=== PATIENT | male | born 1940 | race Hispanic/Latino ===

== ENCOUNTER → 2018-09-01 | Day surgery (SDC) | payer MEDICARE ==
[2018-08-29 15:27] LABS: BASOPHILS % 0.3 % (0.0-1.0); EOSINOPHILS # (AUTO) 0.3 (0.0-0.4); HEMATOCRIT 31.1 % (38.2-49.6); HEMOGLOBIN 10.3 g/dL (14.0-18.0); LYMPHOCYTES # (AUTO) 1.5 (1.0-3.2); MEAN CORPUSCULAR HEMOGLOBIN 32.3 pg (28-32); MEAN CORPUSCULAR HGB CONC 33.1 g/dL (31-35); MEAN CORPUSCULAR VOLUME 97.5 fL (81-99); MONOCYTES # (AUTO) 0.5 (0.2-0.8); MONOCYTES % 7.1 % (4.4-11.3); NEUTROPHILS # (AUTO) 4.3 (2.1-6.9); NEUTROPHILS % 64.4 % (38.7-80.0); PLATELET COUNT 161 x10e3/uL (140-360); RED BLOOD COUNT 3.19 x10e6/uL (4.3-5.7); RED CELL DISTRIBUTION WIDTH 11.8 % (11.7-14.4)
[2018-08-29 15:44] LABS: ANION GAP 13.9 mmol/L (8-16); CALCIUM 9.9 mg/dL (8.4-10.2); CREATININE, SERUM 1.31 mg/dL (0.72-1.25); POTASSIUM 4.9 mmol/L (3.5-5.1)
[2018-08-29 15:46] LABS: INR 0.89; PROTHROMBIN TIME 12.9 seconds (11.9-14.5)
[2018-08-29 15:47] LABS: PARTIAL THROMBOPLASTIN TIME 29.1 seconds (23.8-35.5)
[~2018-09-01] MED LIST: AMBIEN10 MG PO; AMLODIPINE BESY10 MG PO; ASPIR 8181 MG PO; ATORVASTATIN CA20 MG PO; BUPIVACAINE 0.5%/EPI 30 ML SDV INJ ONE; BUPIVACAINE HCL 0.5% INJ 30 ML VIAL INJ ONE; CALCIUM CARBON500 MG PO; COMBIVENT RESPIM4 GM IH; DICYCLOMINE HCL10 MG PO; DOCUSATE SODIU100 MG PO; FENTANYL CITRATE/PF 100MCG/2 ML INJ ONE; FENTANYL1 EAC1 TOP; FUROSEMIDE40 MG PO; GENERLAC10 GM/15 M PO; HALOPERIDOL1 MG PO; HUMALOG100 UNIT/1 SC; HYDROXYZINE HCL25 MG PO; INSULIN REGULAR, HUMAN 100 UNIT/1 ML 3ML VIAL ONE; IRON PO; ISOSORBIDE MONO20 MG PO; LIDOCAINE HCL 1% LOCAL INJ 20 ML VIAL ONE; LIDOCAINE HCL 2% LOCAL INJ 5 ML SDV VIAL INJ ONE; LISINOPRIL10 MG PO; LORAZEPAM1 MG PO; METOPROLOL TART50 MG PO; MIDAZOLAM HCL 2 MG/2 ML VIAL ONE; MS CONTIN30 MG PO; MUCINEX DM ER1 EACH PO; MULTI-VITAMIN1 EACH PO; MUPIROCIN 2% OINT 22 GM TUBE ONE; NITROGLYCERIN0.4 MG SL; OMEPRAZOLE40 MG PO; POTASSIUM CHLO20 ME1 PO; PROPOFOL IV EMULSION 10 MG/ML 20 ML VIAL ONE; RANEXA500 MG PO; SENNOSIDES8.6 MG PO; TOUJEO SQ; TYLENOL WITH C1 EACH PO; VANCOMYCIN HCL1 GM IV; VITAMIN B-121000 MCG SL; ZOFRAN4 MG PO
--- OUTSIDE RECORDS SUMMARY | 2018-09-01 06:56 | XMS REPORT | Clinical Summary ---
Author Author CONRADO [facility] Organization [facility] Address Unknown Phone Unavailable Care Team Providers Care Ediphone Operator Name Role Phone PCP Unavailable Allergies No Known Allergies Medications End Date Status Medication Sig Dispensed Refills Start Date Active atorvastatin (LIPITOR) 40 TK 1 T PO HS 0 MG tablet 8 Active DOK 100 mg capsule TK 1 C PO BID 0 8 Active fentaNYL (DURAGESIC) 100 UNW AND HELENA 1 0 mcg/hr patch PA Q 48 H 8 Active finasteride (PROSCAR) 5 TK 1 T PO QD 2 mg tablet 8 Active furosemide (LASIX) 40 MG TK 1 T PO QD 1 tablet 8 Active HYDROcodone-acetaminophen TK 1 T PO QID 0 (NORCO 10-325) 10-325 mg PRN 8 per tablet Active COMBIVENT RESPIMAT 20-100 INHALE 1 PUFF 3 mcg/actuation Mist QID 8 inhaler Active isosorbide mononitrate TK 1 T PO 3 (IMDUR) 120 mg 24 hr ONCE D 8 tablet Active lisinopril TK 1 T PO D 0 (PRINIVIL,ZESTRIL) 5 MG 8 tablet Active LORazepam (ATIVAN) 2 MG TK 1 T PO BID 3 tablet PRN 8 Active QUEtiapine (SEROQUEL) 50 TK 1 T PO TID 0 MG tablet PRF AGITATION 8 Active QUEtiapine (SEROQUEL) 100 TK 1 T PO HS 0 MG tablet 8 Active ANORO ELLIPTA 62.5-25 INHALE 1 PUFF 3 mcg/actuation DsDv BY MOUTH 8 DAILY. Active haloperidol (HALDOL) 2 MG Take 2 mg by 0 tabletIndications: mouth 2 (two) Delirium times daily. Active sulfamethoxazole-trimetho Take 1 tablet 0 prim (BACTRIM DS) 800-160 by mouth 2 mg per tablet (two) times daily. 05/25/2019 Active aspirin 81 MG chewable Take 1 tablet 30 tablet 3 tablet (81 mg total) 8 by mouth daily. 05/24/2018 Discontinued aspirin 81 MG chewable Take 1 tablet 30 tablet 3 tablet (81 mg total) 8 by mouth daily. 05/24/2018 Discontinued cefpodoxime (VANTIN) 100 Take 1 tablet 4 tablet 0 MG tablet (100 mg 8 total) by mouth 2 (two) times daily for 2 days. Active Problems Problem Noted Date DM (diabetes mellitus) 05/23/2018 Dementia 05/23/2018 Hyperlipidemia 05/23/2018 UTI (urinary tract infection) 05/23/2018 Hypoglycemia 05/23/2018 Hyponatremia 05/23/2018 TIA (transient ischemic attack) 05/23/2018 Smoker 05/23/2018 Acute ischemic stroke 05/22/2018 Received tissue plasminogen activator (t-PA) less than 24 hours prior to 05/22/2018 arrival Essential hypertension 05/22/2018 Resolved Problems Problem Noted Date Resolved Date Disorientation 05/23/2018 05/24/2018 Altered mental state 05/23/2018 05/24/2018 Anemia 05/23/2018 05/24/2018 Aphasia 05/21/2018 05/24/2018 Encounters Care Team Description Date Type Specialty Cem Mabry MD Damani, Naren Watson MD Aphasia (Primary Dx); Dysarthria; Cerebrovascular accident (CVA) due to thrombosis of precerebral artery (HCC); Acute ischemic stroke (HCC); Essential hypertension; Received tissue plasminogen activator (t-PA) less than 24 hours prior to arrival 05/21/2018 Hospital Intensive Care - Encounter 05/24/2018 05/21/2018 Orders Only General Internal Medicine after 08/31/2017 Social History Date Tobacco Use Types Packs/Day Years Used Never Smoker Smokeless Tobacco: Never Used Alcohol Use Drinks/Week oz/Week Comments No Sex Assigned at Date Recorded Not on file Industry Job Start Date Occupation Not on file Not on file Not on file Travel End Travel History Travel Start No recent travel history available. Last Filed Vital Signs Time Taken Vital Sign Reading 05/24/2018 11:00 AM CDT Blood Pressure 126/67 05/24/2018 11:00 AM CDT Pulse 79 05/24/2018 8:00 AM CDT Temperature 36.7 C (98.1 F) 05/24/2018 11:00 AM CDT Respiratory Rate 20 05/24/2018 11:00 AM CDT Oxygen Saturation 100% - Inhaled Oxygen - Concentration 05/21/2018 10:15 PM CDT Weight 50.5 kg (111 lb 5.3 oz) 05/21/2018 10:15 PM CDT Height 170.2 cm (5' 7") 05/21/2018 10:15 PM CDT Body Mass Index 17.44 Plan of Treatment Not on file Procedures Comments Procedure Name Priority Date/Time Associated Diagnosis RHYTHM STRIP - SCAN 05/25/2018 9:40 AM CDT CBC W/PLT COUNT & AUTO Routine 05/24/2018 DIFFERENTIAL 10:10 AM CDT CBC W/PLT COUNT & AUTO Routine 05/24/2018 DIFFERENTIAL 10:10 AM CDT BASIC METABOLIC PANEL (7) Routine 05/24/2018 10:10 AM CDT ED ECG INTERPRETATION Routine 05/23/2018 5:55 PM CDT ECHOCARDIOGRAM REPORT - 05/23/2018 SCAN 1:30 PM CDT 2D ECHO MODE W/O DOPPLER Routine 05/23/2018 9:[address] BRAIN WITHOUT IV Routine 05/23/2018 CONTRAST PORTABLE 4:50 AM CDT APTT Routine 05/23/2018 3:48 AM CDT PROTHROMBIN TIME/INR Routine 05/23/2018 3:48 AM CDT CBC W/PLT COUNT & AUTO Routine 05/23/2018 DIFFERENTIAL 3:42 AM CDT CBC W/PLT COUNT & AUTO Routine 05/23/2018 DIFFERENTIAL 3:42 AM CDT BASIC METABOLIC PANEL (7) Routine 05/23/2018 3:42 AM CDT CAROTID DOPPLER BILATERAL Routine 05/22/2018 1:00 PM CDT URINE CULTURE Routine 05/22/2018 7:43 AM CDT POCT-GLUCOSE METER Routine 05/22/2018 7:39 AM CDT HEMOGLOBIN A1C Routine 05/22/2018 7:32 AM CDT HEPATIC FUNCTION PANEL Routine 05/22/2018 7:32 AM CDT VITAMIN B12 AND FOLATE Routine 05/22/2018 7:32 AM CDT TSH/FREE T4 IF INDICATED Routine 05/22/2018 7:32 AM CDT POCT-GLUCOSE METER Routine 05/22/2018 6:20 AM CDT URINALYSIS W/ MICROSCOPIC Routine 05/22/2018 4:35 AM CDT APTT Routine 05/22/2018 4:35 AM CDT PROTHROMBIN TIME/INR Routine 05/22/2018 4:35 AM CDT COMPREHENSIVE METABOLIC Routine 05/22/2018 PANEL 4:35 AM CDT TROPONIN I Routine 05/22/2018 4:35 AM CDT LIPID PANEL Routine 05/22/2018 4:35 AM CDT CBC W/PLT COUNT & AUTO Routine 05/22/2018 DIFFERENTIAL 1:11 AM CDT CBC W/PLT COUNT & AUTO Routine 05/22/2018 DIFFERENTIAL 1:11 AM CDT ECG 12-LEAD Routine 05/21/2018 10:48 PM CDT Procedure Note - Interface, External Ris In - 05/21/2018 10:59 PM CDT Ventricula r Rate 70 BPM Atrial Rate 70 BPM P-R Interval 148 ms QRS Duration 88 ms Q-T Interval 422 ms QTC Calculatio n(Bazett) 455 ms P Concordia 78 degrees R Concordia 3 degrees T Concordia 67 degrees Normal sinus rhythm Possible Left atrial enlargemen t Low voltage QRS Inferior infarct (cited on or before 8) Abnormal ECG When compared with ECG of 8 22:46, No significan t change was found ECG 12-LEAD Routine 05/21/2018 10:46 PM CDT Procedure Note - Interface, External Ris In - 05/21/2018 10:58 PM CDT Ventricula r Rate 71 BPM Atrial Rate 71 BPM P-R Interval 152 ms QRS Duration 86 ms Q-T Interval 454 ms QTC Calculatio n(Bazett) 493 ms P Concordia 77 degrees R Concordia -15 degrees T Concordia 79 degrees Normal sinus rhythm Possible Left atrial enlargemen t Low voltage QRS Possible Inferior infarct , age undetermin ed Abnormal ECG No previous ECGs available ECG 12-LEAD Routine 05/21/2018 10:46 PM CDT XR CHEST 1 VIEW STAT 05/21/2018 PORTABLE/BEDSIDE 9:08 PM CDT URINALYSIS MICROSCOPIC Routine 05/21/2018 8:58 PM CDT URINALYSIS WITH STAT 05/21/2018 MICROSCOPIC IF INDICATED 8:58 PM CDT CBC W/PLT COUNT & AUTO STAT 05/21/2018 DIFFERENTIAL 8:52 PM CDT MAGNESIUM STAT 05/21/2018 8:52 PM CDT PT/APTT STAT 05/21/2018 8:52 PM CDT TROPONIN I STAT 05/21/2018 8:52 PM CDT COMPREHENSIVE METABOLIC STAT 05/21/2018 PANEL 8:52 PM CDT CBC W/PLT COUNT & AUTO STAT 05/21/2018 DIFFERENTIAL 8:52 PM CDT ECG 12-LEAD Routine 05/21/2018 8:34 PM CDT POCT-GLUCOSE METER Routine 05/21/2018 8:[address] BRAIN/STROKE TEST STAT 05/21/2018 DESIGN 8:29 PM CDT after 08/31/2017 Results * RHYTHM STRIP - SCAN (05/25/2018 9:40 AM CDT) Narrative Performed At * CBC with platelet count + automated diff (05/24/2018 10:10 AM CDT) Only the most recent of 4 results within the time period is included. WBC 4.9 3.5 - 10.5 K/L [facility] RBC 3.78 (L) 4.63 - 6.08 M/L [facility] Hemoglobin 11.7 (L) 13.7 - 17.5 GM/DL [facility] Hematocrit 34.0 (L) 40.1 - 51.0 % [facility] MCV 89.9 79.0 - 92.2 fL [facility] MCH 31.0 25.7 - 32.2 pg [facility] MCHC 34.4 32.3 - 36.5 GM/DL [facility] RDW 12.0 11.6 - 14.4 % [facility] Platelets 138 (L) 150 - 450 K/CU MM [facility] MPV 8.9 (L) 9.4 - 12.4 fL [facility] nRBC 0 0 - 0 /100 WBC [facility] % Neutros 68 % [facility] % Lymphs 19 % [facility] % Monos 9 % [facility] % Eos 3 % [facility] % Baso 0 % [facility] # Neutros 3.34 1.78 - 5.38 K/L [facility] # Lymphs 0.93 (L) 1.32 - 3.57 K/L [facility] # Monos 0.44 0.30 - 0.82 K/L [facility] # Eos 0.13 0.04 - 0.54 K/L [facility] # Baso 0.02 0.01 - 0.08 K/L [facility] Immature 0 0 - 1 % [facility] Granulocytes-[facility] Specimen Blood - Arm, Left Performing Organization Address [facility], [place] Phone Number [facility] [address] [place] [address] [facility] * Basic Metabolic Panel (05/24/2018 10:10 AM CDT) Only the most recent of 2 results within the time period is included. Sodium 131 (L) 136 - 145 meq/L [facility] Potassium 4.5 3.5 - 5.1 meq/L [facility] Chloride 100 98 - 107 meq/L [facility] CO2 24 22 - 29 meq/L [facility] BUN 13 7 - 21 mg/dL [facility] Creatinine 0.98 0.57 - 1.25 mg/dL [facility] Glucose 316 (H) 70 - 105 mg/dL [facility] Calcium 9.4 8.4 - 10.2 mg/dL [facility] EGFR 74Comment: ESTIMATED GFR IS mL/min/1.73 sq m [facility] NOT ACCURATE CREATININE [facility] CLEARANCE IN PREDICTING GLOMERULAR FILTRATION RATE. ESTIMATED GFR IS NOT APPLICABLE FOR DIALYSIS PATIENTS. Specimen Blood - Arm, Left Performing Organization Address City/State/Zipcode Phone Number [facility] [address] [place] [address] [facility] * ED ECG Interpretation (05/23/2018 5:55 PM CDT) Narrative Performed At Cem Mabry MD 05/23/20185:55 PM ECG/EKG Interpretation Date/Time: 05/21/2018 8:34 PM Performed by: CEM MABRY Authorized by: CEM MABRY The ECG was interpreted by ED physician. The ECG is interpreted as sinus rhythm. Rate is normal rate. Heart rate is 67 BPM. Conduction: conduction normal. ST segments normal. T waves normal. Concordia is normal. Other findings: no other findings. Clinical Impression: non-specific ECGECG reviewed and does not meet STEMI criteria. Patient tolerance: Patient tolerated the procedure well with no immediate complications * ECHOCARDIOGRAM REPORT - SCAN (05/23/2018 1:30 PM CDT) Narrative Performed At * 2D Echo W/O Doppler(No Doppler) (05/23/2018 9:17 AM CDT) Ejection Fraction [facility] Narrative Performed At Transthoracic Echocardiography Report (TTE) [facility] Demographics [facility] Patient Name Karlos NOEL of Study05/23/2018 ARAUSA [id number] Male Visit Number [id number] [id number] Room [id number] Number Date of Birth2[facility]erring[facility] Physician Age78 year(s)Suzanna Cardenas, [facility] [[email or web address]] Interpreting Starla Mendoza MD Physician Procedure Type of Study TTE procedure:ECHO2D MODE W/O DOPPLER (Routine) Indications:Suspected cardiac source of emboli. Clinical History HGB 11.1 HCT 32.9 % HLD, HTN, Stroke Contrast Medium: Bubble Study. Height: 67 inches Weight: 50.35 kg (111 lbs) BSA: 1.57 m^2 BMI: 17.38 kg/m^2 HR: 79 bpm BP: 140/59 mmHg Summary Global LV systolic function normal . Normal LV wall thickness. Grade 1 diastolic dysfunction (impaired relaxation and low-normal LA pressure). LA size is normal (16-34 ml/m2) . Mild AoV cusp calcification. IV saline contrast injection was negative for a PFO (patent foramen ovale) at rest and post Valsalva . Unable to estimate peak systolic PA pressure; inadequate TR velocity signal. The estimated RA pressure by IVC dynamics 11-15mmHg . Previous Study No prior studies available for comparison. Signature Findings Technical Quality: Technically adequate exam. Left Ventricle Global LV systolic function normal . Normal LV wall thickness. Estimated LVEF by qualitative assessment is normal (55-60%) . Grade 1 diastolic dysfunction (impaired relaxation and low-normal LA pressure). The left ventricle is chamber size (by PSLAX dimension) is normal (male - LVIDd 4.2-5.8cm) . Left AtriumLA size is normal (16-34 ml/m2) . Right VentricleThe right ventricular chamber size and systolic function are within normal limits. Right Atrium RA size is normal. Atrial SeptumIV saline contrast injection was negative for a PFO (patent foramen ovale) at rest and post Valsalva . Aortic Valve Mild AoV cusp thickening. Mild AoV cusp calcification. AoV calcification primarily involves the non- coronary cusp(s). No evidence of aortic stenosis. Mitral Valve Mild MV leaflet thickening. Mild mitral regurgitation. Tricuspid ValveTV structure is normal. Unable to estimate peak systolic PA pressure; inadequate TR velocity signal. AortaAortic root size (SInus of Valsalva diameter) is normal . PericardiumNo pericardial effusion is visualized. IVC/SVC/PA/PV/PleuralThe estimated RA pressure by IVC dynamics 11-15mmHg . Chambers/Structures Left Atrium LA Dimension: 3.06 cm LA Volume: 29.37 ml LA Vol. Index: 19 ml/m^2 Left Ventricle LVIDd: 4.54 cm LVIDs: 3.11 cm LV Septum Diastolic: 0.75 cm LV PW Diastolic: 0.83 cm LV FS: 31.5 % LVOT Diameter: 2.01 cm Doppler/Quantitative Measurements Mitral Valve MV Peak E-Wave: 0.63 m/s MV Peak A-Wave: 0.9 m/s E/A Ratio: 0.69 Peak Gradient: 1.57 mmHg MV Chucky. Peak: Tissue Doppler E' Septal Velocity: 0.04 m/s E/E': 16.63 E' Lateral Velocity: 0.07 m/s Aortic Valve Peak Velocity: 1.66 m/sMean Velocity: 1 m/s Peak Gradient: 11.01 mmHgMean Gradient: 5.01 mmHg AV Area (continuity): 1.7 cm^2 AV VTI: 32.92 cm AV DVI: 0.54 LVOT Peak Velocity: 0.86 m/s Peak Gradient: 2.93 mmHg Mean Velocity: 0.51 m/s Mean Gradient: 1.3 mmHg LVOT Diameter: 2.01 cmLVOT VTI: 17.66 cm LVOT Area: 3.17 cm^2LVOT SV:56.01 ml LVOT CO: 4.42 l/min LVOT CI: 2.82 l/min/m^2 Procedure Note Interface, External Ris In - 05/23/2018 12:58 PM CDT Transthoracic Echocardiography Report (TTE) Demographics Patient Name AYAH NOEL Date of Study 05/23/2018 JOHANA Gender Male Visit Number [id number] Race Room Number [id number] Number Date of 1940 Referring Naren Bustamante Physician Age 78 year(s) [employer] Tenisha Cardenas RDCS Interpreting Starla Mendoza MD Physician Procedure Type of Study TTE procedure:ECHO2D MODE W/O DOPPLER (Routine) Indications:Suspected cardiac source of emboli. Clinical History HGB 11.1 HCT 32.9 % HLD, HTN, Stroke Contrast Medium: Bubble Study. Height: 67 inches Weight: 50.35 kg (111 lbs) BSA: 1.57 m^2 BMI: 17.38 kg/m^2 HR: 79 bpm BP: 140/59 mmHg Summary Global LV systolic function normal . Normal LV wall thickness. Grade 1 diastolic dysfunction (impaired relaxation and low-normal LA pressure). LA size is normal (16-34 ml/m2) . Mild AoV cusp calcification. IV saline contrast injection was negative for a PFO (patent foramen ovale) at rest and post Valsalva . Unable to estimate peak systolic PA pressure; inadequate TR velocity signal. The estimated RA pressure by IVC dynamics 11-15mmHg . Previous Study No prior studies available for comparison. Signature Findings Technical Quality: Technically adequate exam. Left Ventricle Global LV systolic function normal . Normal LV wall thickness. Estimated LVEF by qualitative assessment is normal (55-60%) . Grade 1 diastolic dysfunction (impaired relaxation and low-normal LA pressure). The left ventricle is chamber size (by PSLAX dimension) is normal (male - LVIDd 4.2-5.8cm) . Left Atrium LA size is normal (16-34 ml/m2) . Right Ventricle The right ventricular chamber size and systolic function are within normal limits. Right Atrium RA size is normal. Atrial Septum IV saline contrast injection was negative for a PFO (patent foramen ovale) at rest and post Valsalva . Aortic Valve Mild AoV cusp thickening. Mild AoV cusp calcification. AoV calcification primarily involves the non- coronary cusp(s). No evidence of aortic stenosis. Mitral Valve Mild MV leaflet thickening. Mild mitral regurgitation. Tricuspid Valve TV structure is normal. Unable to estimate peak systolic PA pressure; inadequate TR velocity signal. Aorta Aortic root size (SInus of Valsalva diameter) is normal . Pericardium No pericardial effusion is visualized. IVC/SVC/PA/PV/Pleural The estimated RA pressure by IVC dynamics 11-15mmHg . Chambers/Structures Left Atrium LA Dimension: 3.06 cm LA Volume: 29.37 ml LA Vol. Index: 19 ml/m^2 Left Ventricle LVIDd: 4.54 cm LVIDs: 3.11 cm LV Septum Diastolic: 0.75 cm LV PW Diastolic: 0.83 cm LV FS: 31.5 % LVOT Diameter: 2.01 cm Doppler/Quantitative Measurements Mitral Valve MV Peak E-Wave: 0.63 m/s MV Peak A-Wave: 0.9 m/s E/A Ratio: 0.69 Peak Gradient: 1.57 mmHg MV Chucky. Peak: Tissue Doppler E' Septal Velocity: 0.04 m/s E/E': 16.63 E' Lateral Velocity: 0.07 m/s Aortic Valve Peak Velocity: 1.66 m/s Mean Velocity: 1 m/s Peak Gradient: 11.01 mmHg Mean Gradient: 5.01 mmHg AV Area (continuity): 1.7 cm^2 AV VTI: 32.92 cm AV DVI: 0.54 LVOT Peak Velocity: 0.86 m/s Peak Gradient: 2.93 mmHg Mean Velocity: 0.51 m/s Mean Gradient: 1.3 mmHg LVOT Diameter: 2.01 cm LVOT VTI: 17.66 cm LVOT Area: 3.17 cm^2 LVOT SV:56.01 ml LVOT CO: 4.42 l/min LVOT CI: 2.82 l/min/m^2 Performing Organization Address City/State/[facility] [place]code Phone Number [facility] * CT brain without IV contrast portable (05/23/2018 4:50 AM CDT) Narrative Performed At FINAL REPORT [facility] contrast INDICATION: Post tPA, slurred speech TECHNIQUE: Contiguous axial images through the head without contrast on the portable CT unit. This exam was performed according to our departmental dose optimization program which includes automated exposure control, adjustment of the mA and/or kV according to patient size and/or use of iterative reconstruction technique. COMPARISON: CT head 05/21/2018 FINDINGS: The exam is motion degraded. Abnormalities may be obscured. With this limitation in mind, no acute intracranial hemorrhage is evident post tPA. No acute territorial infarct is visible on portable CT. Microvascular ischemic changes are similar. Please note that CT is insensitive for early or small infarcts, particularly given motion and portable technique. Generalized volume loss and vascular calcifications are noted. There is no mass effect, midline shift, or hydrocephalus. The visualized sinuses, mastoid air cells, and orbits are unremarkable. Right neck surgical clips are suspected. The calvarium is intact. IMPRESSION: Motion degraded exam. No evident acute intracranial hemorrhage post tPA. Microvascular ischemic changes, grossly similar to 05/21/2018. If there is strong suspicion for acute ischemia, MRI is advised. Signed: Raj Blanco MD Report Verified Date/Time:05/23/2018 07:27:11 Reading Location: [address] Neuro Reading Room Procedure Note Interface, External Ris In - 05/23/2018 7:29 AM CDT FINAL REPORT CT head without contrast INDICATION: Post tPA, slurred speech TECHNIQUE: Contiguous axial images through the head without contrast on the portable CT unit. This exam was performed according to our departmental dose optimization program which includes automated exposure control, adjustment of the mA and/or kV according to patient size and/or use of iterative reconstruction technique. COMPARISON: CT head 05/21/2018 FINDINGS: The exam is motion degraded. Abnormalities may be obscured. With this limitation in mind, no acute intracranial hemorrhage is evident post tPA. No acute territorial infarct is visible on portable CT. Microvascular ischemic changes are similar. Please note that CT is insensitive for early or small infarcts, particularly given motion and portable technique. Generalized volume loss and vascular calcifications are noted. There is no mass effect, midline shift, or hydrocephalus. The visualized sinuses, mastoid air cells, and orbits are unremarkable. Right neck surgical clips are suspected. The calvarium is intact. IMPRESSION: Motion degraded exam. No evident acute intracranial hemorrhage post tPA. Microvascular ischemic changes, grossly similar to 05/21/2018. If there is strong suspicion for acute ischemia, MRI is advised. Signed: Raj Blanco MD Report Verified Date/Time: 05/23/2018 07:27:11 Reading Location: [facility] Neuro Reading Room Performing Organization Address City/State/Zipcode Phone Number GE RIS * aPTT (05/23/2018 3:48 AM CDT) Only the most recent of 2 results within the time period is included. PTT 25.9 22.5 - 36.0 seconds [facility] Specimen Blood - Arm, Right Performing Organization Address City/State/Zipcode Phone Number [facility] [address] [place] [address] [facility] * Prothrombin time/INR (05/23/2018 3:48 AM CDT) Only the most recent of 2 results within the time period is included. Protime 13.1 11.7 - 14.7 seconds [facility] INR 1.0 <=5.9 [facility] Specimen Blood - Arm, Right Narrative Performed At RECOMMENDED COUMADIN/WARFARIN INR THERAPY RANGES [facility] STANDARD DOSE: 2.0 - 3.0 Includes: PROPHYLAXIS for venous thrombosis, [facility] systemic embolization; TREATMENT for venous thrombosis and/or pulmonary embolus. HIGH RISK: Target INR is 2.5-3.5 for patients with mechanical heart valves. Performing Organization Address City/[facility] [place] Phone Number [facility] [address] [place] [address] [facility] * Carotid doppler bilateral (05/22/2018 1:00 PM CDT) Ejection Fraction [facility] Impressions Performed At Right Impression [facility] 1. There is <50% diameter reduction (approximately 47% by 2-D measurement) [facility]ACS in the internal carotid artery with a peak velocity of 116 cm/sec and heterogeneous plaque. 2. There is non-occluding plaque in the external carotid artery. 3. There is non-occluding plaque in the common carotid artery. 4. The vertebral artery flow is antegrade and normal. 5. The subclavian artery is within normal limits where visualized. Left Impression 1. There is <50% diameter reduction (approximately 35% by 2-D measurement) in the internal carotid artery with a peak velocity of 77 cm/sec and heterogeneous plaque. 2. There is non-occluding plaque in the external carotid artery. 3. There is non-occluding plaque in the common carotid artery. 4. The vertebral artery flow is antegrade and normal. 5. The subclavian artery is within normal limits where visualized. Conclusions Summary Carotid duplex scanning and color flow imaging were performed bilaterally. The arteries were adequately visualized. The bilateral internal carotid arteries had <50% hemodynamically insignificant stenosis (approximately 47% by 2-D measurement on the right, approximately 35% by 2-D measurement on the left) with heterogeneous plaque. The vertebral artery flow was antegrade and normal bilaterally. The subclavian arteries were patent with normal flow bilaterally where visualized. Signature Velocities are measured in cm/s ; Diameters are measured in cm Carotid Right Measurements + +----+----+-----+ + + + !Location !PSV !EDV !Angle!%Stenosis 2D!%Stenosis Doppler!Tortuosity ! + +----+----+-----+ + + + !Prox CCA !86.8!12.9!60 !! ! ! + +----+----+-----+ + + + !Dist CCA !138 !21.2!60 !! ! ! + +----+----+-----+ + + + !Prox ICA !108 !20.4!60 !! ! ! + +----+----+-----+ + + + !Dist ICA !116 !29.9!60 !! ! ! + +----+----+-----+ + + + !Prox ECA !132 !7.86!60 !! ! ! + +----+----+-----+ + + + !Vertebral!77!18.9!60 !! ! ! + +----+----+-----+ + + + !Prox Subclavian!136 !0 !60 !! ! ! + +----+----+-----+ + + + - There is antegrade vertebral flow noted on the right side. - Additional Measurements:ICAPSV/CCAPSV 0.84.ICAEDV/CCAEDV 2.32. Carotid Left Measurements + +----+----+-----+ + + + !Location !PSV !EDV !Angle!%Stenosis 2D!%Stenosis Doppler!Tortuosity ! + +----+----+-----+ + + + !Prox CCA !83.3!19.6!60 !! ! ! + +----+----+-----+ + + + !Dist CCA !116 !18.1!60 !! ! ! + +----+----+-----+ + + + !Prox ICA !58.1!20.4!60 !! ! ! + +----+----+-----+ + + + !Dist ICA !77.8!19.6!60 !! ! ! + +----+----+-----+ + + + !Prox ECA !90.4!0 !60 !! ! ! + +----+----+-----+ + + + !Vertebral!80.1!12.6!60 !! ! ! + +----+----+-----+ + + + !Prox Subclavian!227 !0 !60 !! ! ! + +----+----+-----+ + + + - There is antegrade vertebral flow noted on the left side. - Additional Measurements:ICAPSV/CCAPSV 0.67.ICAEDV/CCAEDV 1.04. Narrative Performed At PV [facility] - Carotid Duplex Study [facility] Demographics MKCKESSNIA CPACS Patient NameAYAH NOEL Date of Study 05/22/2018 JOHANA Age 78 Visit [id number] GenderMale Date of 1940 Referring [facility] Room Number 7405 Physician Sheep Sticker Saumya MURDOCKT Estela Anne ician Procedure Type of Study: Cerebral: Carotid, CAROTID DOPPLER, BILATERAL. Indications for Study:Stroke workup . Patient Status:Routine. Study Location:Portable. Technical Quality:Adequate visualization. Risk Factors History of Disease + +----+ + !Diagnosis !Date!Comments! + +----+ + !History/Risk Factors: !!Stroke, HTN ! + +----+ + Procedure Note Interface, External Ris In - 05/22/2018 6:07 PM CDT PV [facility] - Carotid Duplex Study Demographics Patient Name AYAH NOEL Date of Study 05/22/2018 JOHANA Age 78 Visit Number [id number] Gender Male Accession Number [id number] Date of 1940 Referring [facility] Room Number 7405 Physician Sheep Sticker Saumya MURDOCKT Interpreting Suinl Reyes MD Physician Procedure Type of Study: Cerebral: Carotid, CAROTID DOPPLER, BILATERAL. Indications for Study:Stroke workup . Patient Status:Routine. Study Location:Portable. Technical Quality:Adequate visualization. Risk Factors History of Disease + +----+ + !Diagnosis !Date!Comments ! + +----+ + !History/Risk Factors: ! !Stroke, HTN ! + +----+ + Impressions Right Impression 1. There is <50% diameter reduction (approximately 47% by 2-D measurement) in the internal carotid artery with a peak velocity of 116 cm/sec and heterogeneous plaque. 2. There is non-occluding plaque in the external carotid artery. 3. There is non-occluding plaque in the common carotid artery. 4. The vertebral artery flow is antegrade and normal. 5. The subclavian artery is within normal limits where visualized. Left Impression 1. There is <50% diameter reduction (approximately 35% by 2-D measurement) in the internal carotid artery with a peak velocity of 77 cm/sec and heterogeneous plaque. 2. There is non-occluding plaque in the external carotid artery. 3. There is non-occluding plaque in the common carotid artery. 4. The vertebral artery flow is antegrade and normal. 5. The subclavian artery is within normal limits where visualized. Conclusions Summary Carotid duplex scanning and color flow imaging were performed bilaterally. The arteries were adequately visualized. The bilateral internal carotid arteries had <50% hemodynamically insignificant stenosis (approximately 47% by 2-D measurement on the right, approximately 35% by 2-D measurement on the left) with heterogeneous plaque. The vertebral artery flow was antegrade and normal bilaterally. The subclavian arteries were patent with normal flow bilaterally where visualized. Signature Velocities are measured in cm/s ; Diameters are measured in cm Carotid Right Measurements + +----+----+-----+ + + + !Location !PSV !EDV !Angle!%Stenosis 2D!%Stenosis Doppler!Tortuosity ! + +----+----+-----+ + + + !Prox CCA !86.8!12.9!60 ! ! ! ! + +----+----+-----+ + + + !Dist CCA !138 !21.2!60 ! ! ! ! + +----+----+-----+ + + + !Prox ICA !108 !20.4!60 ! ! ! ! + +----+----+-----+ + + + !Dist ICA !116 !29.9!60 ! ! ! ! + +----+----+-----+ + + + !Prox ECA !132 !7.86!60 ! ! ! ! + +----+----+-----+ + + + !Vertebral !77 !18.9!60 ! ! ! ! + +----+----+-----+ + + + !Prox Subclavian!136 !0 !60 ! ! ! ! + +----+----+-----+ + + + - There is antegrade vertebral flow noted on the right side. - Additional Measurements:ICAPSV/CCAPSV 0.84.ICAEDV/CCAEDV 2.32. Carotid Left Measurements + +----+----+-----+ + + + !Location !PSV !EDV !Angle!%Stenosis 2D!%Stenosis Doppler!Tortuosity ! + +----+----+-----+ + + + !Prox CCA !83.3!19.6!60 ! ! ! ! + +----+----+-----+ + + + !Dist CCA !116 !18.1!60 ! ! ! ! + +----+----+-----+ + + + !Prox ICA !58.1!20.4!60 ! ! ! ! + +----+----+-----+ + + + !Dist ICA !77.8!19.6!60 ! ! ! ! + +----+----+-----+ + + + !Prox ECA !90.4!0 !60 ! ! ! ! + +----+----+-----+ + + + !Vertebral !80.1!12.6!60 ! ! ! ! + +----+----+-----+ + + + !Prox Subclavian!227 !0 !60 ! ! ! ! + +----+----+-----+ + + + - There is antegrade vertebral flow noted on the left side. - Additional Measurements:ICAPSV/CCAPSV 0.67.ICAEDV/CCAEDV 1.04. Performing Organization Address City/State/Zipcode Phone Number [facility] MKCKESSON CPACS * Urine culture (05/22/2018 7:43 AM CDT) [facility] OG GLABRATA (A) [facility] Result OG GLABRATA (A) [facility] Specimen Urine - Urine, Clean Catch Performing Organization Address [facility] [place] Phone Number [address] * POC-Glucose meter (05/22/2018 7:39 AM CDT) Only the most recent of 3 results within the time period is included. POC-Glucose Meter 99Comment: TESTED AT [facility] 70 - 110 mg/dL [address] Specimen Blood Performing Organization Address [facility] [place] Phone Number [address] * Vitamin B12 and Folate (05/22/2018 7:32 AM CDT) Vitamin B12 1,673 (H) 213 - 816 pg/mL [facility] Folate 7.4 >=7.0 ng/mL [facility] Specimen Blood Performing Organization Address City/[facility] [place] Phone Number [address] * TSH/Free T4 If Indicated (05/22/2018 7:32 AM CDT) TSH 0.40 0.35 - 4.94 uIU/mL [facility] Specimen Blood Performing Organization Address City/[facility] [place] Phone Number [address] * Hemoglobin A1c (05/22/2018 7:32 AM CDT) Hemoglobin A1C 8.0 (H) 4.3 - 6.1 % [facility] Specimen Blood Performing Organization Address City/[facility]/Zipcode Phone Number [address] * Hepatic function panel (05/22/2018 7:32 AM CDT) Protein, Total 6.9 6.0 - 8.3 gm/dL [facility] Albumin 3.8 3.5 - 5.0 g/dL [facility] Total Bilirubin 0.4 0.2 - 1.2 mg/dL [facility] Bilirubin, Direct 0.2 0.1 - 0.5 mg/dL [facility] Alkaline Phosphatase 87 40 - 150 U/L [facility] AST 21 5 - 34 U/L [facility] ALT 13 6 - 55 U/L [facility] Specimen Blood Performing Organization Address City/[facility] [place] [address] [facility] * Troponin I (05/22/2018 4:35 AM CDT) Only the most recent of 2 results within the time period is included. Troponin I 0.02 0.00 - 0.03 ng/mL [facility] Specimen Blood Narrative Performed At Troponin I (TnI) levels must be interpreted in the context of the presenting [facility] symptoms and the clinical findings. Elevated TnI levels indicate myocardial [facility] damage, but are not specific for ischemic heart disease. Elevated TnI levels are seen in patients with other cardiac conditions (including myocarditis and congestive heart failure), and slight TnI elevations occur in patients with other conditions, including sepsis, renal failure, acidosis, acute neurological disease, and persistent tachyarrhythmia. Fasting Performing Organization Address City/[facility] [place] Phone Number [address] [address] [facility] * Urinalysis w/Microscopic (05/22/2018 4:35 AM CDT) Color, UA Yellow [facility] Clarity, UA Hazy [facility] Specific [place], UA 1.009 1.001 - 1.035 [facility] pH, UA 7.0 5.0 - 8.0 [facility] Protein, UA 20 mg/dL (A) Negative [facility] Glucose, UA Negative Negative [facility] Ketones, UA Negative Negative [facility] Bilirubin, UA Negative Negative [facility] Blood, UA Trace (A) Negative [facility] Nitrite, UA Negative Negative [facility] Leukocytes, UA Large (A) Negative [facility] Urobilinogen, UA 0.2 0.2 - 1.0 mg/dL [facility] RBC, UA 2 /HPF [facility] WBC, UA >182 /HPF [facility] Yeast Occasional [facility] Specimen Source Urine, Collins [facility] Specimen Urine - Urine, Collins Performing Organization Address [facility] Phone Number [facility] [address] [place] [address] [facility] * Fasting lipid panel (05/22/2018 4:35 AM CDT) Triglycerides 89 mg/dL [facility] Cholesterol 131 mg/dL [facility] HDL 58 mg/dL [facility] LDL Calculated 55 mg/dL [facility] Specimen Blood Narrative Performed At Triglyceride Reference Range: [facility] Low Risk <150 [facility] [id number] High Risk 200-499 Very High Risk>=500 Cholesterol Reference Range: Low Risk <200 [id number] High Risk>240 HDL Cholesterol Reference Range: Low Risk >=60 High Risk <40 LDL Cholesterol Reference Range: Optimal<100 Near [id number] Very High >=190 Fasting Performing Organization Address City/[facility] [place] Phone Number [facility] [address] [facility] * Comprehensive metabolic panel (05/22/2018 4:35 AM CDT) Only the most recent of 2 results within the time period is included. [facility], Total 6.8 6.0 - 8.3 gm/dL [facility] Albumin 3.7 3.5 - 5.0 g/dL [facility] Alkaline Phosphatase 85 40 - 150 U/L [facility] Total Bilirubin 0.4 0.2 - 1.2 mg/dL [facility] Sodium 129 (L) 136 - 145 meq/L [facility] Potassium 4.0 3.5 - 5.1 meq/L [facility] Chloride 97 (L) 98 - 107 meq/L [facility] CO2 23 22 - 29 meq/L [facility] BUN 20 7 - 21 mg/dL [facility] Creatinine 0.89 0.57 - 1.25 mg/dL [facility] Glucose 37 (LL) 70 - 105 mg/dL [facility] Calcium 9.3 8.4 - 10.2 mg/dL [facility] AST 20 5 - 34 U/L [facility] ALT 12 6 - 55 U/L [facility] EGFR 83Comment: ESTIMATED GFR IS mL/min/1.73 sq m [facility] NOT ACCURATE CREATININE [facility] CLEARANCE IN PREDICTING GLOMERULAR FILTRATION RATE. ESTIMATED GFR IS NOT APPLICABLE FOR DIALYSIS PATIENTS. Specimen Blood Narrative Performed At Fasting [facility] Performing Organization Address City/State/Zipcode Phone Number [place] [phone] [place], [place] [phone] [facility] * ECG 12 lead (05/21/2018 10:46 PM CDT) Only the most recent of 2 results within the time period is included. Narrative Performed At Ventricular Rate 71 BPM GE MUSE Atrial Rate 71 BPM P-R Interval 152 ms QRS Duration 86 ms Q-T Interval 454 ms QTC Calculation(Bazett) 493 ms P [place] 77 degrees R [place] -15 degrees T [place] 79 degrees Poor data quality Normal sinus rhythm Possible Left atrial enlargement Low voltage QRS Prolonged QT 21 MAY 2018 20:34 QT has lengthened T waves are now negative in V2 Confirmed by MD OSBORN YOCHAI ([id number]) on 05/23/2018 7:01:31 AM Procedure Note Interface, External Ris In - 05/23/2018 7:01 AM CDT Ventricular Rate 71 BPM Atrial Rate 71 BPM P-R Interval 152 ms QRS Duration 86 ms Q-T Interval 454 ms QTC Calculation(Bazett) 493 ms P [place] 77 degrees R [place] -15 degrees T [place] 79 degrees Poor data quality Normal sinus rhythm Possible Left atrial enlargement Low voltage QRS Prolonged QT 21 MAY 2018 20:34 QT has lengthened T waves are now negative in V2 Confirmed by MD OSBORN YOCHAI ([id number]) on 05/23/2018 7:01:31 AM Performing Organization Address City/State/Zipcode Phone Number [facility] * XR chest 1 view portable / bedside (05/21/2018 9:08 PM CDT) Narrative Performed At FINAL REPORT [facility] EXAMINATION: AP PORTABLE CHEST RADIOGRAPH CLINICAL INDICATION: Chest pain IMPRESSION: No comparison studies are available. The patient is status post cardiothoracic surgery with midline sternotomy. The lung volumes are relatively large, nonspecific but can be associated with obstructive lung disease. Subtle reticular opacities are noted in the lung apices which may reflect scarring. Small underlying mass lesion cannot be excluded. No evidence of a discrete pneumonia, pulmonary edema, pleural effusion, pneumothorax or acute osseous abnormality. Signed: Lucita Terrazas MD Report Verified Date/Time:05/21/2018 21:37:35 Reading Location: [address] Reading Room Procedure Note Interface, External Ris In - 05/21/2018 9:39 PM CDT FINAL REPORT EXAMINATION: AP PORTABLE CHEST RADIOGRAPH CLINICAL INDICATION: Chest pain IMPRESSION: No comparison studies are available. The patient is status post cardiothoracic surgery with midline sternotomy. The lung volumes are relatively large, nonspecific but can be associated with obstructive lung disease. Subtle reticular opacities are noted in the lung apices which may reflect scarring. Small underlying mass lesion cannot be excluded. No evidence of a discrete pneumonia, pulmonary edema, pleural effusion, pneumothorax or acute osseous abnormality. Signed: Lucita Terrazas MD Report Verified Date/Time: 05/21/2018 21:37:35 Reading Location: [address] Reading Room Performing Organization Address City/State/Zipcode Phone Number GE RIS * Urinalysis Microscopic Only (05/21/2018 8:58 PM CDT) RBC, UA 4 /HPF [facility] WBC, UA >182 /HPF [facility] Specimen Urine - Urine, Clean Catch Performing Organization Address City/[facility] [place] Phone Number [place] [phone] [place] [phone] [facility] * Urinalysis with Microscopic If Indicated (05/21/2018 8:58 PM CDT) Color, UA Yellow [facility] Clarity, UA Hazy [facility] Specific [place], UA 1.014 1.001 - 1.035 [facility] pH, UA 6.5 5.0 - 8.0 [facility] Protein, UA 50 mg/dL (A) Negative [facility] Glucose, UA 300 mg/dL (A) Negative [facility] Ketones, UA Negative Negative [facility] Bilirubin, UA Negative Negative [facility] Blood, UA Negative Negative [facility] Nitrite, UA Negative Negative [facility] Leukocytes, UA Large (A) Negative [facility] Urobilinogen, UA 0.2 0.2 - 1.0 mg/dL [facility] Specimen Source [facility] Specimen Urine - Urine, Clean Catch Performing Organization Address [facility] [place] Phone Number [address] [address] [phone] * PT/aPTT (05/21/2018 8:52 PM CDT) Protime 13.5 11.7 - 14.7 seconds [facility] INR 1.0 <=5.9 [facility] PTT 29.0 22.5 - 36.0 seconds [facility] Specimen Blood Narrative Performed At RECOMMENDED COUMADIN/WARFARIN INR THERAPY RANGES [facility] STANDARD DOSE: 2.0 - 3.0 Includes: PROPHYLAXIS for venous thrombosis, [facility] systemic embolization; TREATMENT for venous thrombosis and/or pulmonary embolus. HIGH RISK: Target INR is 2.5-3.5 for patients with mechanical heart valves. Performing Organization Address City/[facility] [place] Phone Number [address] [address] [phone] [address] * Magnesium (05/21/2018 8:52 PM CDT) Magnesium 1.8 1.6 - 2.6 mg/dL [facility] Specimen Blood Performing Organization Address City/[facility] [place] Phone Number [address] [address] [phone] [address] * CT brain/stroke protocol (05/21/2018 8:29 PM CDT) Narrative Performed At FINAL REPORT [facility]: CT head without contrast. CLINICAL HISTORY: Motor neuron disease. Slurred speech. COMPARISON: None. TECHNIQUE: CT images of the head were obtained without intravenous contrast.This exam was performed according to our departmental dose optimization program which includes automated exposure control, adjustment of the mA and/or kV according to patient's size and/or use of iterative reconstructive technique. FINDINGS: There is generalized parenchymal atrophy. There are mild white matter microvascular ischemic changes. There is no large demarcated acute territorial infarct. There is intracranial calcific atherosclerosis. There is no acute intracranial hemorrhage, extra-axial fluid collection, mass effect, herniation or hydrocephalus. The basal cisterns are patent. The visualized orbits are normal.The visualized paranasal sinuses and tympanomastoid cavities are clear. The skull base and calvarium are intact. IMPRESSION: Mild white matter microvascular ischemic changes.No acute intracranial hemorrhage, mass effect or large demarcated acute territorial infarct. Consider MRI for further evaluation if clinical suspicion for acute ischemia persists. Findings discussed with Dr. Mabry at 8:58 PM 05/21/18. Signed: Ori Blackburn MD Report Verified Date/Time:05/21/2018 21:00:02 Reading Location: [facility] B1 C013Y CT Body Reading Room Procedure Note Interface, External Ris In - 05/21/2018 9:02 PM CDT FINAL REPORT EXAM: CT head without contrast. CLINICAL HISTORY: Motor neuron disease. Slurred speech. COMPARISON: None. TECHNIQUE: CT images of the head were obtained without intravenous contrast. This exam was performed according to our departmental dose optimization program which includes automated exposure control, adjustment of the mA and/or kV according to patient's size and/or use of iterative reconstructive technique. FINDINGS: There is generalized parenchymal atrophy. There are mild white matter microvascular ischemic changes. There is no large demarcated acute territorial infarct. There is intracranial calcific atherosclerosis. There is no acute intracranial hemorrhage, extra-axial fluid collection, mass effect, herniation or hydrocephalus. The basal cisterns are patent. The visualized orbits are normal. The visualized paranasal sinuses and tympanomastoid cavities are clear. The skull base and calvarium are intact. IMPRESSION: Mild white matter microvascular ischemic changes. No acute intracranial hemorrhage, mass effect or large demarcated acute territorial infarct. Consider MRI for further evaluation if clinical suspicion for acute ischemia persists. Findings discussed with Dr. Mabry at 8:58 PM 05/21/18. Signed: Ori Blackburn MD Report Verified Date/Time: 05/21/2018 21:00:02 Reading Location: [facility] B1 C013Y CT Body Reading Room Performing Organization Address City/State/Zipcode Phone Number GE RIS after 08/31/2017 Insurance Payer Benefit Subscriber ID Type Phone Address Plan / Group MEDICARE MEDICARE A xxxxxxxxxx Medicare B MEDICAID MEDICAID xxxxxxxxx Medicaid OF [place] Advance Directives For more information, please contact: [address] [address] Date Inactivated Comments Code Status Date Activated 05/24/2018 2:52 PM Full Code 05/21/2018 9:43 PM This code status was determined by: Patient
--- OUTSIDE RECORDS SUMMARY | 2018-09-01 06:56 | XMS REPORT | Continuity of Care Document ---
Author Author [facility] Interface Address Unknown Phone Unavailable Problems Problem Status Onset Date Classification Date Reported Comments Source Medications Medication Details Route Status Patient Instructions Ordering Provider Order Date Source Allergies, Adverse Reactions, Alerts Substance Category Reaction Severity Reaction type Status Date Reported Comments Source Immunizations Immunization Date Given Site Status Last Updated Comments Source Results Order Name Results Value Reference Range Date Interpretation Comments Source Ribs unilateral DX Ribs unilateral DX EXAMINATION: Right ribs unilateral HISTORY: Right-sided rib pain status post fall; right rib fracture FINDINGS: 4 views of the right ribs are performed without comparison. There is a minimally displaced fractures of the anterolateral right 8th and 9th ribs. There are no additional displaced right-sided rib fractures identified. There is no right pleural effusion or right-sided pneumothorax. There are postoperative changes of coronary artery bypass grafting with median sternotomy wires and mediastinal surgical clips. IMPRESSION: 1. Minimally displaced fractures of the anterolateral right 8th and 9th ribs. 11/17/2016 - - Read by: Juan Jaeger MD Dictated Date/time: 11/17/16 16:57 Electronically Signed by: Juan Jaeger MD 11/17/16 17:02 FINAL REPORT [place] Tian Hip 2/3 views uni DX Hip 2/3 views uni DX EXAMINATION: Left hip minimum 2 views HISTORY: Chronic left hip pain FINDINGS: AP view of the pelvis and frontal and frog leg lateral views of the left hip are performed without comparison. There are no fractures or dislocations. The femoral heads are well-seated within the acetabula. There is mild bilateral hip osteoarthritis with asymmetric joint space narrowing. The sacral ala appear intact. Postoperative changes of posterior decompression of the lower lumbar spine are partially visualized. Arterial atherosclerotic calcifications are noted. IMPRESSION: 1. Mild bilateral hip osteoarthritis. 2. Postoperative changes of the lower lumbar spine partially visualized. 01/06/2016 - - Read by: Juan Jaeger MD Dictated Date/time: 01/06/16 16:36 Electronically Signed by: Juan Jaeger MD 01/06/16 16:38 FINAL REPORT [facility] [place] Vital Signs Vital Sign Value Date Comments Source Encounters Location Location Details Encounter Type Encounter Number Reason For Visit Attending Provider ADM Date DC Date Status Source [facility] [place] [facility] [id number] Filippo Lehman 03/28/2014 03/29/2014 [facility] [place] [facility] [place] [facility] [id number] Filippo Lehman 04/17/2014 04/18/2014 [facility] [place] [facility] [place] [facility] [id number] Filippo Lehman 01/06/2016 01/07/2016 [facility] [place] [facility] [place] [facility] [id number] Filippo Lehman 11/17/2016 11/18/2016 [facility] [place] Procedures Procedure Code Date Perfomer Comments Source
--- OUTSIDE RECORDS SUMMARY | 2018-09-01 06:56 | XMS REPORT ---
Author Author [facility] Organization [facility] Address Unknown Phone Unavailable Care Team Providers Care Virtual Assistant Name Role Phone TELMA MABRY Unavailable Unavailable Payers Payer Name Policy Type Policy Number Effective Date Expiration Date Problems This patient has no known problems. Allergies, Adverse Reactions, Alerts Allergy Name Allergy Type Status Severity Reaction(s) Onset Date Inactive Date Treating Clinician Comments No Known Allergies DA Active U 2018-08-16 00:00:00 No Known Allergies DA Active U 2018-06-30 00:00:00 No Known Allergies DA Active U 2018-02-18 00:00:00 Medications This patient has no known medications. Results Test Description Test Time Test Comments Text Results Atomic Results Result Comments URINE CULTURE 2018-05-26 10:59:00 CULTURE (BEAKER) (test rtuz=2378) 80-89,000 col/mL Magalie glabrata BASIC METABOLIC [id number] 10:40:00* Test Item Value Reference Range Comments SODIUM (BEAKER) (test tami=784) 131 meq/L 136-145 POTASSIUM (BEAKER) (test vqec=967) 4.5 meq/L 3.5-5.1 CHLORIDE (BEAKER) (test esgr=278) 100 meq/L 98-107 CO2 (BEAKER) (test rauc=563) 24 meq/L 22-29 BLOOD UREA NITROGEN (BEAKER) (test owom=867) 13 mg/dL 7-21 CREATININE (BEAKER) (test ziwp=875) 0.98 mg/dL 0.57-1.25 GLUCOSE RANDOM (BEAKER) (test hjig=796) 316 mg/dL 70-105 CALCIUM (BEAKER) (test cnur=277) 9.4 mg/dL 8.4-10.2 EGFR (BEAKER) (test otbm=0660) 74 mL/min/1.73 sq m ESTIMATED GFR IS NOT ACCURATE CREATININE CLEARANCE IN PREDICTING GLOMERULAR FILTRATION RATE. ESTIMATED GFR IS NOT APPLICABLE FOR DIALYSIS PATIENTS. CBC W/PLT COUNT & AUTO [id number] 10:27:00* Test Item Value Reference Range Comments WHITE BLOOD CELL COUNT (BEAKER) (test komu=083) 4.9 K/ L 3.5-10.5 RED BLOOD CELL COUNT (BEAKER) (test qyts=126) 3.78 M/ L 4.63-6.08 HEMOGLOBIN (BEAKER) (test aakm=134) 11.7 GM/DL 13.7-17.5 HEMATOCRIT (BEAKER) (test isdt=548) 34.0 % 40.1-51.0 MEAN CORPUSCULAR VOLUME (BEAKER) (test jmyh=992) 89.9 fL 79.0-92.2 MEAN CORPUSCULAR HEMOGLOBIN (BEAKER) (test fgnq=643) 31.0 pg 25.7-32.2 MEAN CORPUSCULAR HEMOGLOBIN CONC (BEAKER) (test euvt=540) 34.4 GM/DL 32.3-36.5 RED CELL DISTRIBUTION WIDTH (BEAKER) (test rbba=460) 12.0 % 11.6-14.4 PLATELET COUNT (BEAKER) (test kyjr=807) 138 K/CU MM 150-450 MEAN PLATELET VOLUME (BEAKER) (test sung=315) 8.9 fL 9.4-12.4 NUCLEATED RED BLOOD CELLS (BEAKER) (test pgwm=413) 0 /100 WBC 0-0 NEUTROPHILS RELATIVE PERCENT (BEAKER) (test prqi=221) 68 % LYMPHOCYTES RELATIVE PERCENT (BEAKER) (test ppkc=131) 19 % MONOCYTES RELATIVE PERCENT (BEAKER) (test qizx=552) 9 % EOSINOPHILS RELATIVE PERCENT (BEAKER) (test tgjl=452) 3 % BASOPHILS RELATIVE PERCENT (BEAKER) (test vcfa=473) 0 % NEUTROPHILS ABSOLUTE COUNT (BEAKER) (test koqw=763) 3.34 K/ L 1.78-5.38 LYMPHOCYTES ABSOLUTE COUNT (BEAKER) (test ftup=582) 0.93 K/ L 1.32-3.57 MONOCYTES ABSOLUTE COUNT (BEAKER) (test pdyo=864) 0.44 K/ L 0.30-0.82 EOSINOPHILS ABSOLUTE COUNT (BEAKER) (test tecq=347) 0.13 K/ L 0.04-0.54 BASOPHILS ABSOLUTE COUNT (BEAKER) (test lfhk=715) 0.02 K/ L 0.01-0.08 IMMATURE GRANULOCYTES-RELATIVE PERCENT (BEAKER) (test hedx=5380) 0 % 0-1 CT BRAIN WITHOUT IV CONTRAST - [id number] 07:27:00Reason for exam:-> post-tpaFINAL REPORT CT head without contrast INDICATION: Post tPA, slurred speech TECHNIQUE: Contiguous axial images through the head without contrast on the portable CT unit. This exam was performed according to our departmental dose optimization program which includes automated exposure control, adjustment of the mA and/or kV according to patient size and/or use of iterative reconstruction technique. COMPARISON: CT head 05/21/2018 FINDINGS:The exam is motion degraded. Abnormalities may be [...] ischemia, MRI is advised. Signed: Raj Blanco MDReport Verified Date/Time: 05/23/2018 07:27:11 Reading Location: [address] Neuro Reading Room C METABOLIC [id number] 04:23:00* Test Item Value Reference Range Comments SODIUM (BEAKER) (test uzdk=545) 130 meq/L 136-145 POTASSIUM (BEAKER) (test iqai=415) 4.1 meq/L 3.5-5.1 CHLORIDE (BEAKER) (test ogls=573) 99 meq/L 98-107 CO2 (BEAKER) (test pmvq=727) 25 meq/L 22-29 BLOOD UREA NITROGEN (BEAKER) (test qvwa=141) 13 mg/dL 7-21 CREATININE (BEAKER) (test sxbb=628) 0.92 mg/dL 0.57-1.25 GLUCOSE RANDOM (BEAKER) (test brcb=608) 181 mg/dL 70-105 CALCIUM (BEAKER) (test hbgt=081) 9.2 mg/dL 8.4-10.2 EGFR (BEAKER) (test wvpw=7338) 80 mL/min/1.73 sq m ESTIMATED GFR IS NOT ACCURATE CREATININE CLEARANCE IN PREDICTING GLOMERULAR FILTRATION RATE. ESTIMATED GFR IS NOT APPLICABLE FOR DIALYSIS PATIENTS. [id number] 04:09:00* Test Item Value Reference Range Comments PARTIAL THROMBOPLASTIN TIME (BEAKER) (test fkeh=754) 25.9 seconds 22.5-36.0 CBC W/PLT COUNT & AUTO [id number] 04:09:00* Test Item Value Reference Range Comments WHITE BLOOD CELL COUNT (BEAKER) (test ldhq=108) 5.4 K/ L 3.5-10.5 RED BLOOD CELL COUNT (BEAKER) (test loej=914) 3.62 M/ L 4.63-6.08 HEMOGLOBIN (BEAKER) (test ismo=925) 11.1 GM/DL 13.7-17.5 HEMATOCRIT (BEAKER) (test apaf=991) 32.9 % 40.1-51.0 MEAN CORPUSCULAR VOLUME (BEAKER) (test qwdr=396) 90.9 fL 79.0-92.2 MEAN CORPUSCULAR HEMOGLOBIN (BEAKER) (test dfbn=147) 30.7 pg 25.7-32.2 MEAN CORPUSCULAR HEMOGLOBIN CONC (BEAKER) (test dgvx=252) 33.7 GM/DL 32.3-36.5 RED CELL DISTRIBUTION WIDTH (BEAKER) (test owdn=089) 12.0 % 11.6-14.4 PLATELET COUNT (BEAKER) (test vsyx=041) 126 K/CU MM 150-450 MEAN PLATELET VOLUME (BEAKER) (test hhln=653) 9.3 fL 9.4-12.4 NUCLEATED RED BLOOD CELLS (BEAKER) (test twnu=744) 0 /100 WBC 0-0 NEUTROPHILS RELATIVE PERCENT (BEAKER) (test fpmb=735) 72 % LYMPHOCYTES RELATIVE PERCENT (BEAKER) (test cmld=851) 18 % MONOCYTES RELATIVE PERCENT (BEAKER) (test bapw=744) 8 % EOSINOPHILS RELATIVE PERCENT (BEAKER) (test mnvu=208) 2 % BASOPHILS RELATIVE PERCENT (BEAKER) (test yvzm=132) 0 % NEUTROPHILS ABSOLUTE COUNT (BEAKER) (test jvxu=053) 3.90 K/ L 1.78-5.38 LYMPHOCYTES ABSOLUTE COUNT (BEAKER) (test rvey=225) 0.99 K/ L 1.32-3.57 MONOCYTES ABSOLUTE COUNT (BEAKER) (test xild=063) 0.42 K/ L 0.30-0.82 EOSINOPHILS ABSOLUTE COUNT (BEAKER) (test fmez=693) 0.08 K/ L 0.04-0.54 BASOPHILS ABSOLUTE COUNT (BEAKER) (test gixr=596) 0.01 K/ L 0.01-0.08 IMMATURE GRANULOCYTES-RELATIVE PERCENT (BEAKER) (test xgpf=5327) 0 % 0-1 PROTHROMBIN TIME/[id number] 04:08:00* Test Item Value Reference Range Comments PROTIME (BEAKER) (test ript=263) 13.1 seconds 11.7-14.7 INR (BEAKER) (test ilrc=482) 1.0 <=5.9 RECOMMENDED COUMADIN/WARFARIN INR THERAPY RANGESSTANDARD DOSE: 2.0 - 3.0 Inclu [place]: PROPHYLAXIS for venous thrombosis, systemic embolization; TREATMENT for radha ous thrombosis and/or pulmonary embolus.HIGH RISK: Target INR is 2.5-3.5 for pat ients with mechanical heart valves.HEMOGLOBIN [id number] 11:29:00* Test Item Value Reference Range Comments HEMOGLOBIN A1C (BEAKER) (test akqo=538) 8.0 % 4.3-6.1 TSH/FREE T4 IF [id number] 09:01:00* Test Item Value Reference Range Comments THYROID STIMULATING HORMONE (BEAKER) (test icwg=009) 0.40 uIU/mL 0.35-4.94 VITAMIN B12 AND [id number] 09:01:00* Test Item Value Reference Range Comments VITAMIN B12 (BEAKER) (test xafq=023) 1673 pg/mL 213-816 FOLATE (BEAKER) (test cakd=122) 7.4 ng/mL >=7.0 HEPATIC FUNCTION [id number] 08:26:00* Test Item Value Reference Range Comments TOTAL PROTEIN (BEAKER) (test mmbj=638) 6.9 gm/dL 6.0-8.3 ALBUMIN (BEAKER) (test hxca=2893) 3.8 g/dL 3.5-5.0 BILIRUBIN TOTAL (BEAKER) (test fcvp=812) 0.4 mg/dL 0.2-1.2 BILIRUBIN DIRECT (BEAKER) (test vrhh=690) 0.2 mg/dL 0.1-0.5 ALKALINE PHOSPHATASE (BEAKER) (test cveg=021) 87 U/L 40-150 AST (SGOT) (BEAKER) (test qxvr=289) 21 U/L 5-34 ALT (SGPT) (BEAKER) (test zyac=773) 13 U/L 6-55 URINALYSIS W/ [id number] 08:10:00* Test Item Value Reference Range Comments COLOR (BEAKER) (test qfmo=121) Yellow CLARITY (BEAKER) (test psnh=473) Hazy SPECIFIC GRAVITY UA (BEAKER) (test iiuu=157) 1.009 1.001-1.035 PH UA (BEAKER) (test ttjs=749) 7.0 5.0-8.0 PROTEIN UA (BEAKER) (test mypz=632) 20 mg/dL Negative GLUCOSE UA (BEAKER) (test iqys=045) Negative Negative KETONES UA (BEAKER) (test esrc=959) Negative Negative BILIRUBIN UA (BEAKER) (test wvfs=742) Negative Negative BLOOD UA (BEAKER) (test ektn=594) Trace Negative NITRITE UA (BEAKER) (test yauh=676) Negative Negative LEUKOCYTE ESTERASE UA (BEAKER) (test gxsw=480) Large Negative UROBILINOGEN UA (BEAKER) (test ayav=308) 0.2 mg/dL 0.2-1.0 RBC UA (BEAKER) (test pelh=388) 2 /HPF WBC UA (BEAKER) (test wtge=508) > /HPF YEAST (BEAKER) (test lrjg=9516) Occasional SOURCE(BEAKER) (test trng=1102) Urine, [place] POCT-GLUCOSE [id number] 07:43:00* Test Item Value Reference Range Comments POC-GLUCOSE METER (BEAKER) (test ekkz=6543) 99 mg/dL 70-110 TESTED AT [facility] [address] [address] POCT-GLUCOSE [id number] 06:25:00* Test Item Value Reference Range Comments POC-GLUCOSE METER (BEAKER) (test wdvv=9100) 40 mg/dL 70-110 TESTED AT [facility] [address] [facility] [address] COMPREHENSIVE METABOLIC [id number] 06:19:00* Test Item Value Reference Range Comments TOTAL PROTEIN (BEAKER) (test dobn=003) 6.8 gm/dL 6.0-8.3 ALBUMIN (BEAKER) (test izax=7839) 3.7 g/dL 3.5-5.0 ALKALINE PHOSPHATASE (BEAKER) (test idgf=829) 85 U/L 40-150 BILIRUBIN TOTAL (BEAKER) (test jccq=600) 0.4 mg/dL 0.2-1.2 SODIUM (BEAKER) (test ihze=479) 129 meq/L 136-145 POTASSIUM (BEAKER) (test ripk=527) 4.0 meq/L 3.5-5.1 CHLORIDE (BEAKER) (test hocc=455) 97 meq/L 98-107 CO2 (BEAKER) (test mxnu=738) 23 meq/L 22-29 BLOOD UREA NITROGEN (BEAKER) (test rktk=060) 20 mg/dL 7-21 CREATININE (BEAKER) (test gkaa=997) 0.89 mg/dL 0.57-1.25 GLUCOSE RANDOM (BEAKER) (test cmlg=003) 37 mg/dL 70-105 CALCIUM (BEAKER) (test xlkm=946) 9.3 mg/dL 8.4-10.2 AST (SGOT) (BEAKER) (test clsu=471) 20 U/L 5-34 ALT (SGPT) (BEAKER) (test xawl=165) 12 U/L 6-55 EGFR (BEAKER) (test hsjv=2910) 83 mL/min/1.73 sq m ESTIMATED GFR IS NOT ACCURATE CREATININE CLEARANCE IN PREDICTING GLOMERULAR FILTRATION RATE. ESTIMATED GFR IS NOT APPLICABLE FOR DIALYSIS PATIENTS. FastingTROPONIN [id number] 05:46:00* Test Item Value Reference Range Comments TROPONIN I (EDEAKER) (test usmf=856) 0.02 ng/mL 0.00-0.03 Troponin I (TnI) levels must be interpreted in the context of the presenting sym ptoms and the clinical findings. Elevated TnI levels indicate myocardial damage, but are not specific for ischemic heart disease. Elevated TnI levels are seen in patients with other cardiac conditions (including myocarditis and congestive h eart failure), and slight TnI elevations occur in patients with other conditions , including sepsis, renal failure, acidosis, acute neurological disease, and per sistent tachyarrhythmia.FastingLIPID [id number] 05:39:00* Test Item Value Reference Range Comments TRIGLYCERIDES (BEAKER) (test fpfc=230) 89 mg/dL CHOLESTEROL (BEAKER) (test cvaq=217) 131 mg/dL HDL CHOLESTEROL (AKER) (test hpxv=273) 58 mg/dL LDL CHOLESTEROL CALCULATED (AKER) (test fmqd=086) 55 mg/dL Triglyceride Reference Range: Low Risk <150 Borderline 150-199 High Risk 200-499 Very High Risk >=500Cholesterol Reference Range: Low Risk <200 Borderline 200-239 High Risk >240HDL Cholesterol Reference Range: Low Risk >=60 High Risk <40LDL Cholesterol Reference Range: Optimal <100 Near Optimal 100-129 Borderline 130-159 High 160-189 Very High >=190 Fasting [id number] 05:22:00* Test Item Value Reference Range Comments PARTIAL THROMBOPLASTIN TIME (EDEAKER) (test kzba=442) 30.2 seconds 22.5-36.0 PROTHROMBIN TIME/[id number] 05:21:00* Test Item Value Reference Range Comments PROTIME (EDEAKER) (test uleh=355) 13.6 seconds 11.7-14.7 INR (BEAKER) (test kewh=024) 1.0 <=5.9 RECOMMENDED COUMADIN/WARFARIN INR THERAPY RANGESSTANDARD DOSE: 2.0 - 3.0 Inclu [place]: PROPHYLAXIS for venous thrombosis, systemic embolization; TREATMENT for radha ous thrombosis and/or pulmonary embolus.HIGH RISK: Target INR is 2.5-3.5 for pat ients with mechanical heart valves.CBC W/PLT COUNT & AUTO [id number] 01:32:00* Test Item Value Reference Range Comments WHITE BLOOD CELL COUNT (BEAKER) (test cxff=335) 8.1 K/ L 3.5-10.5 RED BLOOD CELL COUNT (BEAKER) (test qecf=594) 3.61 M/ L 4.63-6.08 HEMOGLOBIN (BEAKER) (test trny=948) 11.2 GM/DL 13.7-17.5 HEMATOCRIT (BEAKER) (test orwj=545) 32.7 % 40.1-51.0 MEAN CORPUSCULAR VOLUME (BEAKER) (test fcun=610) 90.6 fL 79.0-92.2 MEAN CORPUSCULAR HEMOGLOBIN (BEAKER) (test nfiy=203) 31.0 pg 25.7-32.2 MEAN CORPUSCULAR HEMOGLOBIN CONC (BEAKER) (test dest=297) 34.3 GM/DL 32.3-36.5 RED CELL DISTRIBUTION WIDTH (BEAKER) (test fwir=000) 11.8 % 11.6-14.4 PLATELET COUNT (BEAKER) (test icxg=718) 131 K/CU MM 150-450 MEAN PLATELET VOLUME (BEAKER) (test bkwj=092) 9.2 fL 9.4-12.4 NUCLEATED RED BLOOD CELLS (BEAKER) (test bsxb=085) 0 /100 WBC 0-0 NEUTROPHILS RELATIVE PERCENT (BEAKER) (test oaiy=826) 78 % LYMPHOCYTES RELATIVE PERCENT (BEAKER) (test ozlj=788) 15 % MONOCYTES RELATIVE PERCENT (BEAKER) (test rvop=879) 6 % EOSINOPHILS RELATIVE PERCENT (BEAKER) (test rczx=135) 1 % BASOPHILS RELATIVE PERCENT (BEAKER) (test qyte=362) 0 % NEUTROPHILS ABSOLUTE COUNT (BEAKER) (test jodi=109) 6.30 K/ L 1.78-5.38 LYMPHOCYTES ABSOLUTE COUNT (BEAKER) (test ivaf=323) 1.21 K/ L 1.32-3.57 MONOCYTES ABSOLUTE COUNT (BEAKER) (test mlgn=015) 0.49 K/ L 0.30-0.82 EOSINOPHILS ABSOLUTE COUNT (BEAKER) (test edbf=771) 0.04 K/ L 0.04-0.54 BASOPHILS ABSOLUTE COUNT (BEAKER) (test ubug=127) 0.01 K/ L 0.01-0.08 IMMATURE GRANULOCYTES-RELATIVE PERCENT (BEAKER) (test flmx=9551) 0 % 0-1 RAD, CHEST, 1 VIEW, NON [id number] 21:37:00Reason for exam:->chest painShould this be performed at the bedside?->YesFINAL REPORT EXAMINATION: AP PORTABLE CHEST RADIOGRAPH CLINICAL [...] effusion, pneumothorax or acute osseous abnormality. Signed: Yunior Terrazas Verified Date/Time: 05/21/2018 21:37:35 Reading Location: [address] Reading Room Rachel ctronically signed by: YUNIOR TERRAZAS M.D. on 05/21/2018 09:37 PM TROPONIN I 2018-05-21 21:36:00* Test Item Value Reference Range Comments TROPONIN I (BEAKER) (test byus=425) 0.03 ng/mL 0.00-0.03 Troponin I (TnI) levels must be interpreted in the context of the presenting sym ptoms and the clinical findings. Elevated TnI levels indicate myocardial damage, but are not specific for ischemic heart disease. Elevated TnI levels are seen in patients with other cardiac conditions (including myocarditis and congestive h eart failure), and slight TnI elevations occur in patients with other conditions , including sepsis, renal failure, acidosis, acute neurological disease, and per sistent tachyarrhythmia.URINALYSIS [id number] 21:28:00* Test Item Value Reference Range Comments RBC UA (BEAKER) (test cppo=676) 4 /HPF WBC UA (BEAKER) (test eltk=207) > /HPF [id number] 21:28:00* Test Item Value Reference Range Comments MAGNESIUM (BEAKER) (test dthh=497) 1.8 mg/dL 1.6-2.6 COMPREHENSIVE METABOLIC [id number] 21:28:00* Test Item Value Reference Range Comments TOTAL PROTEIN (BEAKER) (test vnnf=159) 7.1 gm/dL 6.0-8.3 ALBUMIN (BEAKER) (test eskl=3377) 3.9 g/dL 3.5-5.0 ALKALINE PHOSPHATASE (BEAKER) (test rthj=230) 91 U/L 40-150 BILIRUBIN TOTAL (BEAKER) (test tdtn=296) 0.3 mg/dL 0.2-1.2 SODIUM (BEAKER) (test lqhu=699) 128 meq/L 136-145 POTASSIUM (BEAKER) (test ngwy=501) 4.8 meq/L 3.5-5.1 CHLORIDE (BEAKER) (test uvcd=960) 94 meq/L 98-107 CO2 (BEAKER) (test qbcp=236) 28 meq/L 22-29 BLOOD UREA NITROGEN (BEAKER) (test sbwn=715) 20 mg/dL 7-21 CREATININE (BEAKER) (test ovhl=893) 1.07 mg/dL 0.57-1.25 GLUCOSE RANDOM (BEAKER) (test pqkn=691) 93 mg/dL 70-105 CALCIUM (BEAKER) (test tfpj=980) 9.5 mg/dL 8.4-10.2 AST (SGOT) (BEAKER) (test trzn=458) 19 U/L 5-34 ALT (SGPT) (BEAKER) (test xsap=676) 13 U/L 6-55 EGFR (BEAKER) (test qufv=6255) mL/min/1.73 sq m INSUFFICIENT CLINICAL DATA TO CALCULATE ESTIMATED GFR. URINALYSIS WITH MICROSCOPIC IF [id number] 21:27:00* Test Item Value Reference Range Comments COLOR (BEAKER) (test mouq=085) Yellow CLARITY (BEAKER) (test eyxl=408) Hazy SPECIFIC GRAVITY UA (BEAKER) (test quop=987) 1.014 1.001-1.035 PH UA (BEAKER) (test alry=361) 6.5 5.0-8.0 PROTEIN UA (BEAKER) (test vvjl=094) 50 mg/dL Negative GLUCOSE UA (BEAKER) (test amdw=622) 300 mg/dL Negative KETONES UA (BEAKER) (test vdwb=625) Negative Negative BILIRUBIN UA (BEAKER) (test offi=550) Negative Negative BLOOD UA (BEAKER) (test yfuy=247) Negative Negative NITRITE UA (BEAKER) (test iebm=086) Negative Negative LEUKOCYTE ESTERASE UA (BEAKER) (test smcr=466) Large Negative UROBILINOGEN UA (BEAKER) (test zwmf=831) 0.2 mg/dL 0.2-1.0 SOURCE(BEAKER) (test fnia=1983) PT/[id number] 21:16:00* Test Item Value Reference Range Comments PROTIME (BEAKER) (test pfns=881) 13.5 seconds 11.7-14.7 INR (BEAKER) (test vzxh=905) 1.0 <=5.9 PARTIAL THROMBOPLASTIN TIME (BEAKER) (test fjou=441) 29.0 seconds 22.5-36.0 RECOMMENDED COUMADIN/WARFARIN INR THERAPY RANGESSTANDARD DOSE: 2.0 - 3.0 Inclu [place]: PROPHYLAXIS for venous thrombosis, systemic embolization; TREATMENT for radha ous thrombosis and/or pulmonary embolus.HIGH RISK: Target INR is 2.5-3.5 for pat ients with mechanical heart valves.CBC W/PLT COUNT & AUTO [id number] 21:00:00* Test Item Value Reference Range Comments WHITE BLOOD CELL COUNT (BEAKER) (test jkjo=853) 5.6 K/ L 3.5-10.5 RED BLOOD CELL COUNT (BEAKER) (test dugv=794) 3.86 M/ L 4.63-6.08 HEMOGLOBIN (BEAKER) (test yvsg=666) 11.9 GM/DL 13.7-17.5 HEMATOCRIT (BEAKER) (test btmc=650) 35.0 % 40.1-51.0 MEAN CORPUSCULAR VOLUME (BEAKER) (test lfnq=176) 90.7 fL 79.0-92.2 MEAN CORPUSCULAR HEMOGLOBIN (BEAKER) (test wabt=066) 30.8 pg 25.7-32.2 MEAN CORPUSCULAR HEMOGLOBIN CONC (BEAKER) (test kfod=105) 34.0 GM/DL 32.3-36.5 RED CELL DISTRIBUTION WIDTH (BEAKER) (test migf=687) 11.9 % 11.6-14.4 PLATELET COUNT (BEAKER) (test yext=773) 146 K/CU MM 150-450 MEAN PLATELET VOLUME (BEAKER) (test yyqh=550) 9.0 fL 9.4-12.4 NUCLEATED RED BLOOD CELLS (BEAKER) (test vshy=460) 0 /100 WBC 0-0 NEUTROPHILS RELATIVE PERCENT (BEAKER) (test lpzz=817) 59 % LYMPHOCYTES RELATIVE PERCENT (BEAKER) (test gkmn=540) 30 % MONOCYTES RELATIVE PERCENT (BEAKER) (test kbxd=609) 9 % EOSINOPHILS RELATIVE PERCENT (BEAKER) (test lyzx=579) 2 % BASOPHILS RELATIVE PERCENT (BEAKER) (test vtld=240) 0 % NEUTROPHILS ABSOLUTE COUNT (BEAKER) (test iilg=254) 3.29 K/ L 1.78-5.38 LYMPHOCYTES ABSOLUTE COUNT (BEAKER) (test tyof=059) 1.65 K/ L 1.32-3.57 MONOCYTES ABSOLUTE COUNT (BEAKER) (test asxh=592) 0.50 K/ L 0.30-0.82 EOSINOPHILS ABSOLUTE COUNT (BEAKER) (test vsyl=496) 0.12 K/ L 0.04-0.54 BASOPHILS ABSOLUTE COUNT (BEAKER) (test zdje=201) 0.01 K/ L 0.01-0.08 IMMATURE GRANULOCYTES-RELATIVE PERCENT (BEAKER) (test vccl=2542) 0 % 0-1 CT, BRAIN/STROKE [id number] 21:00:00Reason for exam:->slurred speechWhat is the patient's sedation requirement?->No SedationFINAL REPORT EXAM: CT head without contrast. CLINICAL [...] white matter microvascular ischemic changes. No acute in tracranial hemorrhage, mass effect or large demarcated acute territorial infarct . Consider MRI for further evaluation if clinical suspicion for acute ischemia p ersists. Findings discussed with Dr. Mabry at 8:58 PM 05/21/18. Signed: Ada Blackburn Verified Date/Time: 05/21/2018 21:00:02 Reading Location: [facility] C013Y CT Body Reading Room -GLUCOSE [id number] 20:34:00* Test Item Value Reference Range Comments POC-GLUCOSE METER (JULIA) (test obug=8600) 102 mg/dL 70-110 TESTED AT [facility] [address] [facility] [id number]
--- OUTSIDE RECORDS SUMMARY | 2018-09-01 06:56 | XMS REPORT | Summary of Care ---
Author Organization Unknown Address Unknown Phone Unavailable Encounter [facility]) [id number] Date(s): 04/17/14 - 04/17/14 [facility] Outpatient Imaging - [address] [address]- [place] Discharge Disposition: Home Physician Attending: Filippo Lehman MD Reason for Visit 724.2 - [place] Problem List No data available for this section Allergies, Adverse Reactions, Alerts No data available for this section Medications No data available for this section Medications Administered During Your Visit No data available for this section Immunizations No data available for this section
--- OUTSIDE RECORDS SUMMARY | 2018-09-01 06:56 | XMS REPORT | Summary of Care ---
Author Organization Unknown Address Unknown Phone Unavailable Encounter HQ Encntr_aligenny([facility]) [id number] Date(s): 03/28/14 - 03/28/14 [facility] Outpatient Imaging - [address] [address]- [place] Discharge Disposition: Home Physician Attending: Filippo Lehman MD Reason for Visit 959.9 - INJURY-SITE NOS Problem List No data available for this section Allergies, Adverse Reactions, Alerts No data available for this section Medications No data available for this section Medications Administered During Your Visit No data available for this section Immunizations No data available for this section
--- OUTSIDE RECORDS SUMMARY | 2018-09-01 06:56 | XMS REPORT | Summary of Care ---
Author Author [facility] Outpatient Imaging - [place] Organization [facility] - [place] Address Unknown Phone Unavailable Encounter HQ Encntr_cris([facility]) [id number] Date(s): 01/06/16 - 01/06/16 [facility] Outpatient Imaging - [place] [address] [place], [place] [id number] [place] [address] [phone] Discharge Disposition: Home Attending Physician: Filippo Lehman MD Vital Signs No data available for this section Problem List No data available for this section Allergies, Adverse Reactions, Alerts No data available for this section Medications No data available for this section Results No data available for this section Immunizations No data available for this section Procedures No data available for this section Social History No data available for this section Assessment and Plan No data available for this section
--- OUTSIDE RECORDS SUMMARY | 2018-09-01 06:56 | XMS REPORT | Summary of Care ---
Author Author [facility] Outpatient Imaging - [place] Organization [facility] - [place] Address Unknown Phone Unavailable Encounter HQ Encntr_cris([facility]) [id number] Date(s): 11/17/16 - 11/17/16 [facility] Outpatient Imaging - [place] [address] [place] [address] 7 [phone] Discharge Disposition: Home or Self Care Attending Physician: Filippo Lehman MD Vital Signs [...]
[2018-09-01 10:20] VITALS: BP 125/62
--- NOTE | 2018-10-07 14:48 | Operative Report ---
DATE OF PROCEDURE: September 01, 2018 PREOPERATIVE DIAGNOSIS: Sternal wire protrusion. POSTOPERATIVE DIAGNOSIS: Sternal wire protrusion. TITLE OF OPERATION: Sternal revision. DESCRIPTION OF OPERATION FOLLOWS: After the satisfactory accomplishment of general anesthesia with a MAC technique, the patient's chest was prepped and draped in a sterile fashion. A small ellipse of skin was incised around the sternal wire, which was protruding through the skin. The skin incision was carried down through the muscles and fascia to expose the sternum and the offending wire. The wire was grasped, transected and removed along with the ellipse of skin. All bleeding points were carefully cauterized. The wound was vigorously irrigated with antibiotic solution. The wound was then closed in layers with interrupted 2-0 Vicryl for the soft tissues and interrupted vertical mattress sutures for the skin and subcutaneous tissues. These sutures were of 2-0 nylon. The wound was then sterilely dressed. The patient was returned to the recovery room in good condition. Job#: [id number] OR
== END | disposition home or self-care (01) ==
LOC: OR 06:53
PROVIDERS: ATTEND Thoracic Surgery (Cardiothoracic Vascular Surgery)
DX: T85.698A Other mechanical complication of other specified internal prosthetic devices, implants and grafts, initial encounter (principal); J44.9 Chronic obstructive pulmonary disease, unspecified; G47.33 Obstructive sleep apnea (adult) (pediatric); E11.9 Type 2 diabetes mellitus without complications; K21.9 Gastro-esophageal reflux disease without esophagitis; I25.810 Atherosclerosis of coronary artery bypass graft(s) without angina pectoris; I25.2 Old myocardial infarction; I10 Essential (primary) hypertension; I69.344 Monoplegia of lower limb following cerebral infarction affecting left non-dominant side; R00.1 Bradycardia, unspecified; D64.9 Anemia, unspecified; F41.9 Anxiety disorder, unspecified; F32.9 Major depressive disorder, single episode, unspecified; F17.200 Nicotine dependence, unspecified, uncomplicated; Y83.8 Other surgical procedures as the cause of abnormal reaction of the patient, or of later complication, without mention of misadventure at the time of the procedure; Z01.810 Encounter for preprocedural cardiovascular examination; Z01.812 Encounter for preprocedural laboratory examination; Z79.82 Long term (current) use of aspirin; Z79.4 Long term (current) use of insulin; Z95.1 Presence of aortocoronary bypass graft
CPT/HCPCS: 20680; 36415 ×2; 80048; 82948; 85025; 85610; 85730; 86850; 86900; 86920; 87071; 87075; 87205; 88300; 93005; J1817; J2001 ×2; J2250; J2704

== ENCOUNTER 2018-09-23 12:47 | Emergency (ER) | payer MEDICARE ==
[~2018-09-23] VITALS: Ht 172.7 cm; Wt 55.8 kg
[~2018-09-23 12:47] MED LIST changes: -BUPIVACAINE 0.5%/EPI 30 ML SDV INJ ONE; -BUPIVACAINE HCL 0.5% INJ 30 ML VIAL INJ ONE; -FENTANYL CITRATE/PF 100MCG/2 ML INJ ONE; -INSULIN REGULAR, HUMAN 100 UNIT/1 ML 3ML VIAL ONE; -LIDOCAINE HCL 1% LOCAL INJ 20 ML VIAL ONE; -LIDOCAINE HCL 2% LOCAL INJ 5 ML SDV VIAL INJ ONE; -MIDAZOLAM HCL 2 MG/2 ML VIAL ONE; -MUPIROCIN 2% OINT 22 GM TUBE ONE; -PROPOFOL IV EMULSION 10 MG/ML 20 ML VIAL ONE
--- OUTSIDE RECORDS SUMMARY | 2018-09-23 12:51 | XMS REPORT | Clinical Summary ---
Author Author [facility] Organization [facility] Address Unknown Phone Unavailable Care Team Providers Care Sheet Rock Sander Name Role Phone PCP Unavailable Allergies No [...] 05/21/2018 Orders Only General Internal Medicine after 09/22/2017 Social History Date Tobacco Use Types Packs/Day [...] ms QTC Calculatio n(Bazett) 455 ms P [place] 78 degrees R [place] 3 degrees T [place] 67 degrees Normal sinus rhythm Possible Left [...] ms QTC Calculatio n(Bazett) 493 ms P [place] 77 degrees R [place] -15 degrees T [place] 79 degrees Normal sinus rhythm Possible Left [...] STAT 05/21/2018 DESIGN 8:29 PM CDT after 09/22/2017 Results * RHYTHM STRIP - SCAN (05/25/2018 9:40 AM CDT) Narrative Performed At * CBC with platelet count + automated diff (05/24/2018 10:10 AM CDT) Only the most recent of 4 results within the time period is included. WBC 4.9 3.5 - 10.5 K/L [facility] RBC 3.78 (L) 4.63 - 6.08 M/L [facility] Hemoglobin 11.7 (L) 13.7 - 17.5 GM/DL [facility] Hematocrit 34.0 (L) 40.1 - 51.0 % [facility] MCV 89.9 79.0 - 92.2 fL [facility] MCH 31.0 25.7 - 32.2 pg [facility] MCHC 34.4 32.3 - 36.5 GM/DL [facility] RDW 12.0 11.6 - 14.4 % [facility] Platelets 138 (L) 150 - 450 K/CU MM [facility] MPV 8.9 (L) 9.4 - 12.4 fL [facility] nRBC 0 0 - 0 /100 WBC [facility] % Neutros 68 % [facility] % Lymphs 19 % [facility] % Monos 9 % [facility] % Eos 3 % [facility] % Baso 0 % [facility] # Neutros 3.34 1.78 - 5.38 K/L [facility] # Lymphs 0.93 (L) 1.32 - 3.57 K/L [facility] # Monos 0.44 0.30 - 0.82 K/L [facility] # Eos 0.13 0.04 - 0.54 K/L [facility] # Baso 0.02 0.01 - 0.08 K/L [facility] Immature 0 0 - 1 % [facility] Granulocytes-[facility] Specimen Blood - Arm, Left Performing Organization Address [facility] Phone Number [facility] [address] [place] [address] [facility] * Basic Metabolic Panel (05/24/2018 10:10 AM CDT) Only the most recent of 2 results within the time period is included. Sodium 131 (L) 136 - 145 meq/L [facility] Potassium 4.5 3.5 - 5.1 meq/L [facility] Chloride 100 98 - 107 meq/L [facility] CO2 24 22 - 29 meq/L [facility] BUN 13 7 - 21 mg/dL [facility] Creatinine 0.98 0.57 - 1.25 mg/dL [facility] Glucose 316 (H) 70 - 105 mg/dL [facility] Calcium 9.4 8.4 - 10.2 mg/dL [facility] EGFR 74Comment: ESTIMATED GFR IS mL/min/1.73 sq m [facility] NOT ACCURATE CREATININE [facility] CLEARANCE IN PREDICTING GLOMERULAR FILTRATION RATE. ESTIMATED GFR IS NOT APPLICABLE FOR DIALYSIS PATIENTS. Specimen Blood - Arm, Left Performing Organization Address City/State/Zipcode Phone Number [facility] [address] [place] [address] [facility] * ED ECG Interpretation (05/23/2018 [...] normal. ST segments normal. T waves normal. [place] is normal. Other findings: no other findings. Clinical Impression: non-specific ECGECG reviewed and does not meet STEMI criteria. Patient tolerance: Patient tolerated the procedure well with no immediate complications * ECHOCARDIOGRAM REPORT - SCAN (05/23/2018 1:30 PM CDT) Narrative Performed At * 2D Echo W/O Doppler(No Doppler) (05/23/2018 9:17 AM CDT) Ejection Fraction [facility] Narrative Performed At Transthoracic Echocardiography Report (TTE) [facility] Demographics [facility] Patient Name Karlos NOEL of Study05/23/2018 ARAUSA [id number] Male Visit Number [id number] [id number] Room [id number] Number Date of Birth2[facility] Robby Physician Age78 year(s)Suzanna Cardenas, [facility] Interpreting Starla Mendoza MD Physician Procedure Type [...] Study 05/23/2018 JOHANA Gender Male Visit Number [id number] Race Room Number 7405 Number Date of 1940 Referring Naren Bustamante Physician Age 78 year(s) 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[employer] Tenisha Cardenas RDCS Interpreting Starla Mendoza MD [...] LVOT CI: 2.82 l/min/m^2 Performing Organization Address City/State/[facility] Phone Number [facility] * CT brain without IV contrast portable (05/23/2018 4:50 AM CDT) Narrative Performed At FINAL REPORT [facility] CT head without contrast INDICATION: Post tPA, [...] MD Report Verified Date/Time:05/23/2018 07:27:11 Reading Location: [address] Neuro Reading Room Procedure Note Interface, [...] Report Verified Date/Time: 05/23/2018 07:27:11 Reading Location: [facility] Neuro Reading Room Performing Organization Address City/State/Zipcode Phone Number [facility] * aPTT (05/23/2018 3:48 AM CDT) Only the most recent of 2 results within the time period is included. PTT 25.9 22.5 - 36.0 seconds [facility] Specimen Blood - Arm, Right Performing Organization Address City/State/Zipcode Phone Number [facility] [address] [place] [address] [facility] * Prothrombin time/INR (05/23/2018 3:48 AM CDT) Only the most recent of 2 results within the time period is included. Protime 13.1 11.7 - 14.7 seconds [facility] INR 1.0 <=5.9 [facility] Specimen Blood - Arm, Right Narrative Performed At RECOMMENDED COUMADIN/WARFARIN INR THERAPY RANGES [facility] STANDARD DOSE: 2.0 - 3.0 Includes: PROPHYLAXIS for venous thrombosis, [facility] systemic embolization; TREATMENT for venous thrombosis and/or pulmonary embolus. HIGH RISK: Target INR is 2.5-3.5 for patients with mechanical heart valves. Performing Organization Address City/[facility]code Phone Number [facility] [address] [place] [address] [facility] * Carotid doppler bilateral (05/22/2018 1:00 PM CDT) Ejection Fraction [facility] Impressions Performed At Right Impression [facility] 1. There is [...] At PV LAB - Carotid Duplex Study [facility] Demographics MKCKESSNIA [facility] Patient NameAYAH NOEL Date of Study 05/22/2018 JOHANA Age 78 Visit [id number] GenderMale Date of 1940 Referring [facility] Room Number 7405 Physician Plant Puller Saumya MURDOCKT Estela Anne ician Procedure Type [...] Study 05/22/2018 JOHANA Age 78 Visit Number [id number] Gender Male Accession Number [id number] Date of 1940 Referring [facility] Room Number 7405 Physician Plant Puller Saumya MURDOCKT Interpreting Sunil Reyes MD Physician Procedure Type of Study: [...] * Urine culture (05/22/2018 7:43 AM CDT) [facility] OG GLABRATA (A) [facility] Result OG GLABRATA (A) [facility] Specimen Urine - Urine, Clean Catch Performing Organization Address [facility] Phone Number [address] * POC-Glucose meter (05/22/2018 7:39 AM CDT) Only the most recent of 3 results within the time period is included. POC-Glucose Meter 99Comment: TESTED AT [facility] 70 - 110 mg/dL [address] Specimen Blood Performing Organization Address [facility] Phone Number [address] * Vitamin B12 and Folate (05/22/2018 7:32 AM CDT) Vitamin B12 1,673 (H) 213 - 816 pg/mL [facility] Folate 7.4 >=7.0 ng/mL [facility] Specimen Blood Performing Organization Address City/[facility] Phone Number [address] * TSH/Free T4 If Indicated (05/22/2018 7:32 AM CDT) TSH 0.40 0.35 - 4.94 uIU/mL [facility] Specimen Blood Performing Organization Address City/[facility]code Phone Number [address] * Hemoglobin A1c (05/22/2018 7:32 AM CDT) Hemoglobin A1C 8.0 (H) 4.3 - 6.1 % [facility] Specimen Blood Performing Organization Address City/[facility]/Zipcode Phone Number [address] * Hepatic function panel (05/22/2018 7:32 AM CDT) Protein, Total 6.9 6.0 - 8.3 gm/dL [facility] Albumin 3.8 3.5 - 5.0 g/dL [facility] Total Bilirubin 0.4 0.2 - 1.2 mg/dL [facility] Bilirubin, Direct 0.2 0.1 - 0.5 mg/dL [facility] Alkaline Phosphatase 87 40 - 150 U/L [facility] AST 21 5 - 34 U/L [facility] ALT 13 6 - 55 U/L [facility] Specimen Blood Performing Organization Address City/[facility] Hospitalcode [place] [address] [facility] * Troponin I (05/22/2018 4:35 AM CDT) Only the most recent of 2 results within the time period is included. Troponin I 0.02 0.00 - 0.03 ng/mL [facility] Specimen Blood Narrative Performed At Troponin I (TnI) levels must be interpreted in the context of the presenting [facility] symptoms and the clinical findings. Elevated TnI levels indicate myocardial [facility] damage, but are not specific for ischemic heart disease. Elevated TnI levels are seen in patients with other cardiac conditions (including myocarditis and congestive heart failure), and slight TnI elevations occur in patients with other conditions, including sepsis, renal failure, acidosis, acute neurological disease, and persistent tachyarrhythmia. Fasting Performing Organization Address City/[facility] Phone Number [address] [address] [facility] * Urinalysis w/Microscopic (05/22/2018 4:35 AM CDT) Color, UA Yellow [facility] Clarity, UA Hazy [facility] Specific [place], UA 1.009 1.001 - 1.035 [facility] pH, UA 7.0 5.0 - 8.0 [facility] Protein, UA 20 mg/dL (A) Negative [facility] Glucose, UA Negative Negative [facility] Ketones, UA Negative Negative [facility] Bilirubin, UA Negative Negative [facility] Blood, UA Trace (A) Negative [facility] Nitrite, UA Negative Negative [facility] Leukocytes, UA Large (A) Negative [facility] Urobilinogen, UA 0.2 0.2 - 1.0 mg/dL [facility] RBC, UA 2 /HPF [facility] WBC, UA >182 /HPF [facility] Yeast Occasional [facility] Specimen Source Urine, Collins [facility] Specimen Urine - Urine, Collins Performing Organization Address [facility] Phone Number [facility] [address] [place] [address] [facility] * Fasting lipid panel (05/22/2018 4:35 AM CDT) Triglycerides 89 mg/dL [facility] Cholesterol 131 mg/dL [facility] HDL 58 mg/dL [facility] LDL Calculated 55 mg/dL [facility] Specimen Blood Narrative Performed At Triglyceride Reference Range: [facility] Low Risk <150 [facility] [id number] High Risk 200-499 Very High Risk>=500 Cholesterol Reference Range: Low Risk <200 [id number] High Risk>240 HDL Cholesterol Reference Range: Low Risk >=60 High Risk <40 LDL Cholesterol Reference Range: Optimal<100 Near Jyoksho113-009 [id number] Lely553-278 Very High >=190 Fasting Performing Organization Address City/[facility] Phone Number [facility] [address] [facility] * Comprehensive metabolic panel (05/22/2018 4:35 AM CDT) Only the most recent of 2 results within the time period is included. [facility], Total 6.8 6.0 - 8.3 gm/dL [facility] Albumin 3.7 3.5 - 5.0 g/dL [facility] Alkaline Phosphatase 85 40 - 150 U/L [facility] Total Bilirubin 0.4 0.2 - 1.2 mg/dL [facility] Sodium 129 (L) 136 - 145 meq/L [facility] Potassium 4.0 3.5 - 5.1 meq/L [facility] Chloride 97 (L) 98 - 107 meq/L [facility] CO2 23 22 - 29 meq/L [facility] BUN 20 7 - 21 mg/dL [facility] Creatinine 0.89 0.57 - 1.25 mg/dL [facility] Glucose 37 (LL) 70 - 105 mg/dL [facility] Calcium 9.3 8.4 - 10.2 mg/dL [facility] AST 20 5 - 34 U/L [facility] ALT 12 6 - 55 U/L [facility] EGFR 83Comment: ESTIMATED GFR IS mL/min/1.73 sq m [facility] NOT ACCURATE CREATININE [facility] CLEARANCE IN PREDICTING GLOMERULAR FILTRATION RATE. ESTIMATED GFR IS NOT APPLICABLE FOR DIALYSIS PATIENTS. Specimen Blood Narrative Performed At Fasting [facility] Performing Organization Address City/State/Zipcode Phone Number [place] [phone] [place], [place] [phone] [facility] * ECG 12 lead (05/21/2018 10:46 PM CDT) Only the most recent of 2 results within the time period is included. Narrative Performed At Ventricular Rate 71 BPM GE MUSE Atrial Rate 71 BPM P-R Interval 152 ms QRS Duration 86 ms Q-T Interval 454 ms QTC Calculation(Bazett) 493 ms P [place] 77 degrees R [place] -15 degrees T [place] 79 degrees Poor data quality Normal sinus [...] 454 ms QTC Calculation(Bazett) 493 ms P [place] 77 degrees R [place] -15 degrees T [place] 79 degrees Poor data quality Normal sinus rhythm Possible Left atrial enlargement Low voltage QRS Prolonged QT 21 MAY 2018 20:34 QT has lengthened T waves are now negative in V2 Confirmed by MD OSBORN YOCHAI ([id number]) on 05/23/2018 7:01:31 AM Performing Organization Address City/State/Zipcode Phone Number [email or web address] * XR chest 1 view portable / bedside (05/21/2018 9:08 PM CDT) Narrative Performed At FINAL REPORT [employer] EXAMINATION: AP PORTABLE CHEST RADIOGRAPH CLINICAL INDICATION: [...] MD Report Verified Date/Time:05/21/2018 21:37:35 Reading Location: [address] Reading Room Procedure Note Interface, External [...] Report Verified Date/Time: 05/21/2018 21:37:35 Reading Location: [address] Reading Room Performing Organization Address City/State/Zipcode Phone Number GE [facility] * Urinalysis Microscopic Only (05/21/2018 8:58 PM CDT) RBC, UA 4 /HPF [facility] WBC, UA >182 /HPF [facility] Specimen Urine - Urine, Clean Catch Performing Organization Address City/[facility] Phone Number [place] [phone] [place] [phone] [facility] * Urinalysis with Microscopic If Indicated (05/21/2018 8:58 PM CDT) Color, UA Yellow [facility] Clarity, UA Hazy [facility] Specific [place], UA 1.014 1.001 - 1.035 [facility] pH, UA 6.5 5.0 - 8.0 [facility] Protein, UA 50 mg/dL (A) Negative [facility] Glucose, UA 300 mg/dL (A) Negative [facility] Ketones, UA Negative Negative [facility] Bilirubin, UA Negative Negative [facility] Blood, UA Negative Negative [facility] Nitrite, UA Negative Negative [facility] Leukocytes, UA Large (A) Negative [facility] Urobilinogen, UA 0.2 0.2 - 1.0 mg/dL [facility] Specimen Source [facility] Specimen Urine - Urine, Clean Catch Performing Organization Address [facility] Phone Number [address] [address] [phone] * PT/aPTT (05/21/2018 8:52 PM CDT) Protime 13.5 11.7 - 14.7 seconds [facility] INR 1.0 <=5.9 [facility] PTT 29.0 22.5 - 36.0 seconds [facility] Specimen Blood Narrative Performed At RECOMMENDED COUMADIN/WARFARIN INR THERAPY RANGES [facility] STANDARD DOSE: 2.0 - 3.0 Includes: PROPHYLAXIS for venous thrombosis, [facility] systemic embolization; TREATMENT for venous thrombosis and/or pulmonary embolus. HIGH RISK: Target INR is 2.5-3.5 for patients with mechanical heart valves. Performing Organization Address City/[facility] Phone Number [address] [address] [phone] [address] * Magnesium (05/21/2018 8:52 PM CDT) Magnesium 1.8 1.6 - 2.6 mg/dL [facility] Specimen Blood Performing Organization Address City/[facility] Phone Number [address] [address] [phone] * CT brain/stroke protocol (05/21/2018 8:29 PM CDT) Narrative Performed At FINAL REPORT [facility] EXAM: CT head without contrast. CLINICAL HISTORY: [...] MD Report Verified Date/Time:05/21/2018 21:00:02 Reading Location: [facility] B1 C013Y CT Body Reading Room [...] Report Verified Date/Time: 05/21/2018 21:00:02 Reading Location: [facility] B1 C013Y CT Body Reading Room Performing Organization Address City/State/Zipcode Phone Number [facility] after 09/22/2017 Insurance Payer Benefit Subscriber ID Type Phone Address Plan / Group MEDICARE MEDICARE A xxxxxxxxxx Medicare B MEDICAID MEDICAID xxxxxxxxx Medicaid OF [place] Advance Directives For more information, please contact: [address] [address] Date Inactivated Comments Code Status Date Activated 05/24/2018 2:52 PM Full Code 05/21/2018 9:43 PM This code status was determined by: Patient
--- NOTE | 2018-09-23 13:35 | NUR ---
PT BROUGHT FROM LOBBY VIA W/C INTO ER 10. AT BEDSIDE. PT WAS WET WITH URINE ON ARRIVAL AND REQUIRED INCONTINENCE CARE. PT [email or web address] AT THIS TIME, TO PERSON AND PLACE. STATES THAT SECONDARY TO HIS DEMENTIA HE IS IN AND OUT OF ORIENTATION
[2018-09-23 15:01] LABS: BASOPHILS % 0.1 % (0.0-1.0); EOSINOPHILS # (AUTO) 0.1 (0.0-0.4); HEMATOCRIT 28.8 % (38.2-49.6); HEMOGLOBIN 9.5 g/dL (14.0-18.0); LYMPHOCYTES # (AUTO) 0.9 (1.0-3.2); LYMPHOCYTES % 13.3 % (18.0-39.1); MEAN CORPUSCULAR HEMOGLOBIN 31.7 pg (28-32); MONOCYTES # (AUTO) 0.4 (0.2-0.8); MONOCYTES % 6.2 % (4.4-11.3); NEUTROPHILS # (AUTO) 5.3 (2.1-6.9); PLATELET COUNT 183 x10e3/uL (140-360)
--- NOTE | 2018-09-23 15:26 | NUR ---
WOUND CARE CONSULTATION - Focused assessment. Patient in through ER for dehiscence of surgical incision of mid-sternal chest measuring (2.5 x 0.5 x 0.4 cm). Patient had just had sutures removed 24 hours ago. Likely will not adhere if sutures are re-applied. Patient not appropriate for acute inpatient care per ER evaluation. Chest incision cleansed in sterile fashion and applied Promogran and covered with saline moistened gauze dressing as prescribed during ER visit. Left heel presents with DTI (7 x 6.5 X 0 cm). Spouse at bedside verbalizes that patient has been using heel protector and advised to continue use. Denies having a wound care doctor but is currently being seen buy [address] States there are no orders and formerly [facility] has been using dry dressings for his heel ulcer. Betadine moistened gauze dressing applied with bolstered 4x4 gauze and kelrix wrap then secured with hypafix tape applied as prescribed. All dressings dated and signed. Orders written and original given to spouse to follow up at [facility] wound care center for continued care. Temporary wound care orders provided through ER while awaiting appointment for 09/29/2017 at 8 am were provided as well. Bedside education provided to Mrs. Quinn and patient. Spouse verbalized understanding. Thank you for the consultation. Addendum: 09/23/18 at 1541 by Hernan Marmolejo RN Amended: Links added.
--- NOTE | 2018-09-23 15:28 | Diagnostic Imaging Report ---
EXAMINATION: CHEST SINGLE (PORTABLE) INDICATION: Rule out pneumonia. COMPARISON: Chest radiograph with rib radiographs 06/08/2012. FINDINGS: TUBES and LINES: None. LUNGS: The lungs are hyperinflated. No evidence of pneumonia or pulmonary edema. Nodular opacity measuring 8 mm projects over the left lower lung zone. PLEURA: No pleural effusion or pneumothorax. HEART AND MEDIASTINUM: The cardiomediastinal silhouette is unremarkable. BONES AND SOFT TISSUES: Status post median sternotomy. No acute radiographic abnormality. UPPER ABDOMEN: No free air under the diaphragm. Status post cholecystectomy. IMPRESSION: Emphysematous changes of the lungs without evidence of pneumonia. Possible 8 mm nodule in the left lower lung. A non-urgent chest CT is suggested for further evaluation. Signed by: Dr. Jovani Artis MD on 09/23/2018 3:24 PM
[2018-09-23 15:30] LABS: ANION GAP 15.9 mmol/L (8-16); CALCIUM 9.9 mg/dL (8.4-10.2); CREATININE, SERUM 1.18 mg/dL (0.72-1.25); POTASSIUM 4.9 mmol/L (3.5-5.1)
[2018-09-23 15:34] VITALS: BP 145/71
== END 2018-09-23 15:55 | disposition home or self-care (01) ==
LOC: ER 12:47
DX: T81.32XA Disruption of internal operation (surgical) wound, not elsewhere classified, initial encounter (principal); L89.620 Pressure ulcer of left heel, unstageable; F03.90 Unspecified dementia, unspecified severity, without behavioral disturbance, psychotic disturbance, mood disturbance, and anxiety; E11.9 Type 2 diabetes mellitus without complications; J44.9 Chronic obstructive pulmonary disease, unspecified; Z86.73 Personal history of transient ischemic attack (TIA), and cerebral infarction without residual deficits; Z74.01 Bed confinement status
CPT/HCPCS: 36415; 71045; 80048; 85025; 99283

== ENCOUNTER 2018-10-26 09:18 | Outpatient (RCR) | payer MEDICARE ==
[~2018-10-26 09:18] MED LIST changes: +LIDOCAINE VISC 2% SOLN 15 ML UDC ONE; +LIDOCAINE/PRILOCAINE 2.5-2.5% KIT ONE; +MUPIROCIN 2% OINT 22 GM TUBE ONE
[2018-10-26] MEDS ORDERED: LIDOCAINE VISC 2% SOLN 15 ML UDC ONE (14:00)
== END 2018-10-27 ==
LOC: WCC 09:18
PROVIDERS: ATTEND Family Medicine
DX: T81.89XA Other complications of procedures, not elsewhere classified, initial encounter (principal); E11.8 Type 2 diabetes mellitus with unspecified complications; L89.622 Pressure ulcer of left heel, stage 2; I69.954 Hemiplegia and hemiparesis following unspecified cerebrovascular disease affecting left non-dominant side; I10 Essential (primary) hypertension; D64.9 Anemia, unspecified; E78.5 Hyperlipidemia, unspecified; G30.9 Alzheimer's disease, unspecified; I21.9 Acute myocardial infarction, unspecified; I63.9 Cerebral infarction, unspecified; J44.9 Chronic obstructive pulmonary disease, unspecified; Z74.01 Bed confinement status
CPT/HCPCS: 36415; 82948; 87071; 87075; 87186; 87205

== ENCOUNTER 2018-11-02 10:28 | Outpatient (RCR) | payer MEDICARE ==
[~2018-11-02 10:28] MED LIST changes: -LIDOCAINE VISC 2% SOLN 15 ML UDC ONE; -LIDOCAINE/PRILOCAINE 2.5-2.5% KIT ONE; -MUPIROCIN 2% OINT 22 GM TUBE ONE
[2018-11-02] MEDS ORDERED: MUPIROCIN 2% OINT 22 GM TUBE ONE (18:49)
[2018-11-02] MEDS ORDERED: LIDOCAINE VISC 2% SOLN 15 ML UDC ONE (18:49)
== END 2018-11-24 ==
LOC: WCC 10:28
PROVIDERS: ATTEND Family Medicine
DX: T81.89XA Other complications of procedures, not elsewhere classified, initial encounter (principal); E11.8 Type 2 diabetes mellitus with unspecified complications; L89.302 Pressure ulcer of unspecified buttock, stage 2; L89.622 Pressure ulcer of left heel, stage 2; I69.954 Hemiplegia and hemiparesis following unspecified cerebrovascular disease affecting left non-dominant side; I10 Essential (primary) hypertension; D64.9 Anemia, unspecified; E78.5 Hyperlipidemia, unspecified; G30.9 Alzheimer's disease, unspecified; I21.9 Acute myocardial infarction, unspecified; I63.9 Cerebral infarction, unspecified; J44.9 Chronic obstructive pulmonary disease, unspecified; Z74.01 Bed confinement status